=== PATIENT | male | born 1930 | race Caucasian/White ===

== ENCOUNTER 2016-11-17 09:03 | Inpatient (IN) | payer MEDICARE, BC ==
[~2016-11-17] VITALS: Ht 167.6 cm; Wt 71.6 kg
--- NOTE | ~2016-11-17 | ENPV ---
Carotid Duplex Study Demographics Patient Name ANA SIU Date of Study 11/17/2016 Patient Number [id number] Gender Male Date of 1930 Age 86 Visit Number [id number] Height 66 Accession Number [id number] Weight 147.49 Referring Magalis Buckley MD Physician A Physician Physician Michael Hope Installer Technician Physician DO Hostess Party Sales Representative Theodora Berg BS, RT Conclusions Summary No evidence of stenosis in the carotid arteries bilaterally. The right vertebral artery is present with antegrade flow. The left vertebral artery is present with antegrade flow. Calcific plaque at the bulb and proximal internal carotid arteries bilaterally. Tortuous right internal carotid artery. Procedure Type of Study: Cerebral:Carotid, Carotid Doppler Bilateral. Indications for Study:Pre-Op CABG. Appropriate Use Criteria:6 Allergies - No known allergies. Patient Status:Routine. Study Location:Inpatient Portable. Technical Quality:Adequate visualization. Risk Factors - The patient's risk factor(s) include: dyslipidemia and arterial hypertension. - The patient's last creatinine was 1 mg/dl. Velocities are measured in cm/s ; Diameters are measured in cm Carotid Right Measurements Carotid Left Measurements + +--------+--------+ + + + +--------+ --------+ + + !Location !PSV !EDV !Angle !%Stenosis ! !Location !PSV ! EDV !Angle !%Stenosis ! + +--------+--------+ + + + +--------+ --------+ + + !Prox CCA !123 !13 !60 ! ! !Prox CCA !127 ! 22 !60 ! ! + +--------+--------+ + + + +--------+ --------+ + + !Dist CCA !112 !15 !60 ! ! !Dist CCA !100 ! 15 !60 ! ! + +--------+--------+ + + + +--------+ --------+ + + !Prox ICA !76 !22 !60 ! ! !Prox ICA !78 ! 19 !60 ! ! + +--------+--------+ + + + +--------+ --------+ + + !Dist ICA !83 !20 !50 ! ! !Dist ICA !51 ! 15 !24 ! ! + +--------+--------+ + + + +--------+ --------+ + + !Prox ECA !120 ! !60 ! ! !Prox ECA !109 ! !60 ! ! + +--------+--------+ + + + +--------+ --------+ + + !Vertebral !47 ! !60 ! ! !Vertebral !42 ! !60 ! ! + +--------+--------+ + + + +--------+ --------+ + + !Subclavian !141 ! !60 ! ! !Subclavian !138 ! !60 ! ! + +--------+--------+ + + + +--------+ --------+ + + - There is antegrade vertebral flow noted on the right side. - There is antegrade verte bral flow noted on the left side. - Add'l Measurements:ICAPSV/CCAPSV 0.68.ICAEDV/CCAEDV 1.69. - Add'l Measurements:ICAPS V/CCAPSV 0.61.ICAEDV/CCAEDV 0.85. Signature dtt: JESSICA MAY dtd: 11/17/16 1426 Physician Self Edit
--- NOTE | ~2016-11-17 | ENPV ---
Vascular Lower Extremity Vein Mapping Procedure Demographics Patient Name ANA ISU Date of Study 11/17/2016 Patient Number [id number] Gender Male Date of 1930 Age 86 Visit Number [id number] Height 66 Accession Number [id number] Weight 147.49 Referring Magalis Buckley MD Physician A Physician Physician Michael Hope Bench Precision Assembler Physician DO Lighting Fixtures Decorator Theodora Berg BS, RT Conclusions Summary Borderline adequate GSV bilaterally. Procedure Type of Study: Veins:Lower Extremity Vein Mapping, Vein Mapping NH. Indications for Study:Pre-Op CABG. Allergies - No known allergies. Patient Status:Routine. Study Location:Inpatient Portable. Technical Quality:Adequate visualization. Risk Factors - The patient's risk factor(s) include: dyslipidemia and arterial hypertension. - The patient's last creatinine was 1 mg/dl. Velocities are measured in cm/s ; Diameters are measured in cm + ++--------++--------+ !Superficial - Great Saphenous Vein !!Right !!Left ! + ++--------++--------+ !Location !!Diameter!!Diameter! + ++--------++--------+ !Sapheno Femoral Junction !!0.4 !!0.34 ! + ++--------++--------+ !GSV High Thigh !!0.35 !!0.28 ! + ++--------++--------+ !GSV Mid Thigh !!0.2 !!0.29 ! + ++--------++--------+ !GSV Low Thigh !!0.26 !!0.22 ! + ++--------++--------+ !GSV Knee !!0.2 !!0.21 ! + ++--------++--------+ !GSV High Calf !!0.15 !!0.23 ! + ++--------++--------+ !GSV Mid Calf !!0.22 !!0.21 ! + ++--------++--------+ !GSV Low Calf !!0.24 !!0.2 ! + ++--------++--------+ !GSV Ankle !!0.23 !!0.25 ! + ++--------++--------+ Signature dtt: JESSICA MAY dtissa: 11/17/16 1443 Physician Self Margaret
--- NOTE | ~2016-11-17 | OR ---
PATIENT'S NAME: ANA SIU [facility] AGE: 86 Y [address] ROOM: [place] [address] LOCATION: GPCU ADMIT DATE: 11/18/2016 OR/Procedure Report DISCHARGE DATE: FAMILY PHYSICIAN: SERA CORTEZ MD ATTENDING PHYSICIAN: Jalen Blancas SURGEON: Bonita Nelson MD NAILING MACHINE OPERATOR AUTOMATIC: DATE OF PROCEDURE: 11/19/2016 INDICATION FOR PROCEDURE: Intraoperative hemodynamic monitoring and access. PROCEDURE: 1. Central venous catheter. 2. Arterial line. DESCRIPTION OF PROCEDURE: After a brief time-out was completed, verifying the correct patient, procedure, and site, the patient was placed in dependent position appropriate for central line placement. The patient's neck was prepped and draped in usual sterile fashion and 1 mL 1% lidocaine was used to anesthetize the surrounding skin. Using the Seldinger technique and under real-time ultrasound guidance, a 2 lumen introducer 9-Slovenian 10-cm sheath was introduced into the right internal jugular vein. The guidewire then was removed. Each lumen of the catheter was evacuated from air and then flushed with sterile saline. The catheter then was sutured in place and a sterile Tegaderm then was applied. Next, under arterial line placement, the patient's left wrist was prepped and draped in the usual sterile fashion. A 1 mL 1% lidocaine was used to anesthetize the surrounding skin. Using a 20-gauge Arrow catheter under the Seldinger technique, the guidewire was introduced into the patient's left radial artery and catheter then was introduced over the guidewire and the guidewire then was removed. Pulsatile waveform did ensue on the monitor and the catheter then was secured to place. A sterile Tegaderm was applied. Pulses at the distal insertion of the catheter were checked and found to be adequate. The patient tolerated the above procedures well. There were no procedural complications. BONITA NELSON MD FAY/modl /[id number] d: 11/24/16 2329 t: 12/15/16 0913, OPERATIVE SUMMARY
--- NOTE | ~2016-11-17 | CON ---
PATIENT'S NAME: ANA SIU [facility] AGE: 86 Y [address] ROOM: [place] [address] LOCATION: GPCU ADMIT DATE: 11/18/2016 Consultation DISCHARGE DATE: FAMILY PHYSICIAN: SERA CORTEZ MD ATTENDING PHYSICIAN: Jalen Blancas DATE OF CONSULTATION: 11/17/2016 REFERRING PHYSICIAN: Karlo Montenegro DO REQUESTING PHYSICIAN: Jalen Blancas MD REASON FOR CONSULTATION: Stable exertional angina/coronary artery disease. HISTORY OF PRESENT ILLNESS: The patient is an 86-year-old white male who is in relatively good health. As of late, he has been noticing exertional angina, especially with quick-paced walking. The chest discomfort resolves once he discontinues the activity. He has been evaluated by his primary care provider and has been seen by Dr. Blancas in the [facility]. He underwent a treadmill stress test with findings of nonischemic perfusion, but ischemic EKG changes. His ejection fraction was noted to be at 75%. Given these findings, Dr. Blancas recommended that the patient follow through with a left heart catheterization, which was done here today at [facility]. Findings for the catheterization revealed to the right coronary artery, an 85% occlusion. To the LAD, 85% occlusion. To the circumflex, an 80% and an 85% occlusion respectively, and a diagonal at 70%. Dr. Blancas discussed the findings with the patient and his . Surgical revascularization was recommended, and Dr. Montenegro was asked to see the patient in consultation for consideration of bypass surgery. PAST MEDICAL HISTORY: ILLNESSES: Hypertension and dyslipidemia. SURGERIES/PROCEDURES: Bilateral cataract surgeries and left surgical repair of a fractured femur. ALLERGIES: NO KNOWN DRUG ALLERGIES. SOCIAL HISTORY: PATIENT'S NAME: ANA SIU [facility] AGE: 86 Y [address] ROOM: [place] [address] LOCATION: GPCU ADMIT DATE: 11/18/2016 Consultation DISCHARGE DATE: FAMILY PHYSICIAN: SERA CORTEZ MD ATTENDING PHYSICIAN: Jalen Blancas The patient and his reside in [place], [place]. He is retired. He has grown children. He is a lifetime nonsmoker and does not consume alcohol. MEDICATIONS: 1. Cozaar 25 mg daily. 2. Lipitor 40 mg daily. 3. Coreg 3.125 mg b.i.d. 4. Aspirin 81 mg daily. 5. Lutein 20 mg daily. 6. Multivitamin. REVIEW OF SYSTEMS: GENERAL: The patient denies any change in weight or appetite. No fever chills or sweats. He has not noted any fatigue. HEENT: Age-related vision changes with cataract surgery. He does wear glasses. No hearing complaints. Does have some difficulty with swallowing pills and food at times. RESPIRATORY: No unusual cough, wheezing, or history of asthma. He has not been having any shortness of breath. No PND, KANG, or orthopnea. No diagnosed obstructive sleep apnea. CARDIOVASCULAR: Stable exertional chest discomfort which is present intermittently. No history of murmur. No intermittent claudication. No lower extremity edema. GASTROINTESTINAL: No persistent nausea, vomiting, constipation, or diarrhea. No GERD complaints. GENITOURINARY: Does have an enlarged prostate, but otherwise no urinary issues. MUSCULOSKELETAL: Overall, no complaints. He does not require ambulatory devices for assisting him in ambulation. NEUROLOGIC: No frequent or severe headaches. No history of seizures, memory loss, or syncope. ENDOCRINE: No diagnosed diabetes or thyroid conditions. INTEGUMENT: No known skin diseases. PHYSICAL EXAMINATION: VITAL SIGNS: Blood pressure 152/78, pulse is 61, respirations 16, temperature 97.4, and O2 saturation is 97% on room air. Height is 167.64 cm and weight is 66.9 kg. GENERAL: He is very pleasant. He is in no acute distress. His is here as well as his daughter for the consultation. HEENT: Normocephalic, with EOMIs intact. Conjunctivae clear. LUNGS: Clear to auscultation on the anterior. CARDIOVASCULAR: Regular rate and rhythm. ABDOMEN: Soft and nontender x4 quadrants with positive bowel sounds throughout. PATIENT'S NAME: ANA SIU [facility] AGE: 86 Y [address] ROOM: [place] [address] [facility] ADMIT DATE: 11/18/2016 Consultation DISCHARGE DATE: FAMILY PHYSICIAN: SERA CORTEZ MD ATTENDING PHYSICIAN: Jalen Blancas EXTREMITIES: No clubbing, cyanosis, or edema. No varicosities. NEUROLOGIC: Alert and oriented. Strength is symmetrical. SKIN: No suspicious skin lesions. LABORATORY AND TEST RESULTS: CBC with his white blood cell count of 6.2, hemoglobin 12.7, hematocrit 37.6, and platelets 166. INR 1.14. CMS shows a sodium of 140, potassium of 4.1, BUN at 21, creatinine at 1.0, and estimated GFR is greater than 60. His lipid profile shows a cholesterol of 113, triglycerides 77, HDL 47, and an LDL of 51. IMPRESSION: 1. Multivessel coronary artery disease. 2. Stable exertional angina. RECOMMENDATION AND PLAN: Dr. Montenegro has reviewed the catheterization films. He has discussed the findings with the patient and his family. Risks and benefits of surgical revascularization were discussed. Discussion of the risks included, but were not limited to bleeding requiring transfusion or return to the operative suite, myocardial infarction, cerebrovascular accident, renal and/or pulmonary failure. Also discussed were arrhythmias and infection as well as operative and postoperative mortality. Length of stay and recovery thereafter were discussed. The patient does consent to proceed with surgery. We will have him transferred to the progressive care floor where we will begin preoperative evaluation with plans for surgery on November 19, 2016. The patient and family's questions were asked and answered to their satisfaction. We would like to thank Dr. Blancas for allowing us to participate in the care of this very pleasant gentleman. ERICH MONTENEGRO APRN FOR KARLO MONTENEGRO, DO DLQ/modl /[id number] d: 11/18/16 1219 t: 12/01/16 0828, CONSULTATION REPORT
--- NOTE | ~2016-11-17 | OR ---
PATIENT'S NAME: ANA SIU [facility] AGE: 86 Y [address] ROOM: [place] [address] LOCATION: CU ADMIT DATE: 11/18/2016 OR/Procedure Report DISCHARGE DATE: FAMILY PHYSICIAN: BURAK MCINTYRE MD ATTENDING PHYSICIAN: Jalen Blancas SURGEON: Karlo Elkins DO TIGHTENING MACHINE OPERATOR: DATE OF PROCEDURE: 11/19/2016 PREOPERATIVE DIAGNOSIS: Multivessel coronary artery disease. POSTOPERATIVE DIAGNOSES: Multivessel coronary artery disease plus coagulopathy. PROCEDURES PERFORMED: Coronary artery bypass grafting x6 with reverse saphenous vein graft to the LAD, left internal mammary artery bypass to diagonal #2, reverse saphenous vein graft to diagonal #1, reverse saphenous vein graft to diagonal #3, reverse saphenous vein graft to obtuse marginal #4, and reverse saphenous vein graft to posterior descending artery. BRIEF HISTORY: Mr. Siu is an 86-year-old white male with the above noted diagnosis. DESCRIPTION OF SURGERY: He has been brought to the Operative Suite today, and sterilely prepped and draped in the usual fashion for surgical revascularization. A sternal incision was made, and the sternum was divided in midline. Concurrently to this, the saphenous vein was harvested endoscopically from the lower extremities. The mammary retractor was placed, and the left internal mammary artery was identified and then harvested utilizing surgical clips and electrocautery. Prior to its division, the patient was fully heparinized. The mammary was then divided and prepared for bypass. The mammary retractor was removed, and a sternal retractor was placed. Pericardium was opened and pericardial well was created. The patient did have significant hyperinflation of his lungs, which over the chronic term has displaced his heart inferiorly, making the mammary somewhat shortened in comparison to his LAD. His LAD, however, was significantly calcified, and his internal mammary will not reach to an adequate level. Therefore, we will use it for a diagonal artery branch. Continuing, the vein was then prepared for bypass. Cannulation sutures were placed in the ascending aorta and right atrium for bypass with cardioplegic cannulae. The patient was cannulated and connected to the bypass pump without difficulty. Adequate ACT was achieved. Cardiopulmonary bypass was initiated. Cross-clamp was applied. Antegrade and retrograde cardioplegia were given along with topical cold saline for cardiac arrest. The posterior descending artery was identified and opened, and an end- to-side vein graft was anastomosed to this in a 7-0 fashion and sized PATIENT'S NAME: ANA SIU [facility] AGE: 86 Y [address] ROOM: [id number] [place], [place] [address] LOCATION: [facility] ADMIT DATE: 11/18/2016 OR/Procedure Report DISCHARGE DATE: FAMILY PHYSICIAN: BURAK MCINTYRE MD ATTENDING PHYSICIAN: Jalen Blancas appropriately. Another 500 mL of vein graft and retrograde cardioplegia were given. This was done after each distal anastomosis. Similar venous distal anastomoses were then completed to each of the obtuse marginals. We then utilized the internal mammary artery to diagonal #2, and then saphenous vein grafts to the remaining diagonal and then to the LAD. Once all these were completed, the cross-clamp was removed and a partial occlusion clamp was placed. Warm blood was now initiated via the vein grafts, and the bulldog had been removed from the mammary. We performed three vein grafts to the ascending aorta, each of the obtuse marginals, and the posterior descending artery under partial occlusion clamping. This was done with 4-0 punch and 6-0 Prolene. With this completed, the partial occlusion clamp was removed. The grafts were de-aired, bulldog was removed, and distal flow was given. We then utilized 3.8 heartstring and a 6-0 Prolene to anastomose LAD vein graft to the ascending aorta, and then we utilized [id number] of the diagonal to an obtuse marginal to complete our proximal anastomosis. Once this was completed, the warm blood was discontinued and retrograde catheter was removed. Two atrial and one ventricular temporary pacemaking wires were placed. Ventilations were initiated, and we weaned from cardiopulmonary bypass without difficulty. The patient was coagulopathic throughout the course of the procedure and even prior to heparinization. Our labs were sent off. Venous cannula was removed, and remaining volume was returned from the pump to the patient. The ascending aortic cannula was then removed. ROSALIO had shown profound abnormalities of the platelets system, fibrinogen system, and our labs confirmed a low fibrinogen level of 82 and an elevated INR of 1.9 and platelet count of 149. Therefore, we have ordered 2 units of platelets, 20 units of cryoprecipitate, and 2 units of FFP. Three chest tubes were placed, one in the left pleural space, one in the posterior pericardial space, and one in the anterior mediastinal space. Sternocaval system was then utilized to close the sternum. COUNT RESULTS: All sponge, instrument, and needle counts were correct. WOUND CLOSURE: Copious amounts of antibiotic-infused saline were used to irrigate the sternum and mediastinum. The soft tissues were closed in a layered fashion. DO ERICKA FITZGERALD/mc /[id number] PATIENT'S NAME: ANA SIU [facility] AGE: 86 Y [address] ROOM: [place] [address] LOCATION: GICU ADMIT DATE: 11/18/2016 OR/Procedure Report DISCHARGE DATE: FAMILY PHYSICIAN: BURAK MCINTYRE MD ATTENDING PHYSICIAN: Jalen Blancas CC: Burak Mcintyre MD d: 11/19/161 t: 11/20/16 1526, OPERATIVE SUMMARY
--- NOTE | ~2016-11-17 | CON ---
PATIENT'S NAME: ANA SIU [facility] AGE: 86 Y [address] ROOM: [place] [address] LOCATION: GPCU ADMIT DATE: 11/18/2016 Consultation DISCHARGE DATE: FAMILY PHYSICIAN: SERA CORTEZ MD ATTENDING PHYSICIAN: Jalen Ramsey REFERRING PHYSICIAN: Karlo Montenegro, DO A CONSULT FOR DR. RAMSEY AND DR. MONTENEGRO.: HISTORY OF PRESENT ILLNESS: This pleasant, 86-year-old gentleman is referred for rehab evaluation. He is status post, and on 11/19/2016, multivessel coronary artery disease, CABG x6 vessels done on 11/19/2016 as I mentioned. Initially, he was having exertional angina, details on history and physical. PAST MEDICAL HISTORY: Past history of significance also: 1. Hypertension. 2. Dyslipidemia. 3. Bilateral cataract surgeries. 4. Left femur fracture, status post repair and pinning. 5. Hypothyroid. PHYSICAL EXAMINATION: GENERAL: He is alert at the present time, oriented x3. VITAL SIGNS: Blood pressure 121/64, temperature 97.9, pulse 77, respiration rate 18. He is 5 feet 6 inches and weighs 72.5. He is on sternal precautions and with heart hugger. HEAD: Normocephalic. Cranial nerves 2 through 12 are within normal limits. He is saturating at room air. Vitals remain stable, and he is able to comprehend and express without difficulty. MEDICATIONS: He is on the following medications: 1. Levothyroxine. 2. Colchicine. 3. Aspirin. 4. Multivitamin. 5. Lasix. 6. Pepcid. 7. Pacerone. 8. Docusate sodium. PATIENT'S NAME: ANA SIU [facility] AGE: 86 Y [address] ROOM: [place] [address] LOCATION: GPCU ADMIT DATE: 11/18/2016 Consultation DISCHARGE DATE: FAMILY PHYSICIAN: SERA CORTEZ MD ATTENDING PHYSICIAN: Jalen Ramsey 9. Lipitor. 10. Potassium chloride. 11. Coreg. 12. Lortab. 13. Tylenol. 14. Milk of magnesia. 15. Glucose. 16. Lovenox. 17. Albuterol. 18. Glucagon. 19. Dextrose. 20. Amiodarone. 21. Zofran. 22. Dulcolax. 23. Morphine sulfate. 24. Bactroban. ASSESSMENT AND PLAN: We will initiate, at the present time, PT, OT, and speech. Please see the orders. I feel this gentleman will benefit from intensive rehabilitation about 2 weeks, aiming to discharge at modified independence. I did explain all this to him and his and daughter. They verbalized understanding and agreement. Thank you for this referral. MD MINERVA ISIDRO/mc /[id number] d: 11/24/16 1520 t: 11/25/16 0809, CONSULTATION REPORT
--- NOTE | ~2016-11-17 | CATH ---
Cardiac Diagnostic Report Demographics Patient Name SHERRON Sanabria Gender Male Date of 1930 Age 86 year(s) Patient Number [id number] Date of Study 11/17/2016 Visit Number [id number] Room Number G6336 [place] [id number] Ht 167.64 cm Wt 66.9 kg Referring Miguelina Donohue Primary Physician Physician Performing Efstratiou Secondary Physician Physician Onelia Marquez MD Diagnostic Efstratiou Assisting Physician Physician Onelia Marquez MD Interventional Physician Workplace Rehabilitation Officer Physician Findings and Conclusions Diagnostic Findings and Conclusion Heavily calcified coronaries Severe diffuse 3 vessel CAD Diagnostic Recommendations CT Consult Procedure Description The patient was brought to the diagnostic cardiac catheterization-EP laboratory in the fasting, non-sedated state. Informed consent was obtained in the written and verbal form after the risks and benefits were explained. The patient had no further questions and agreed to proceed. The planned puncture-incision site(s) were shaved and prepped with ChloraPrep and draped in the usual sterile manner. Conscious sedation, supplemental oxygen, and pain control medications were delivered by a registered nurse under physician guidance. Surface ECG rhythm, blood pressure measurement, and pulse oximetry were monitored throughout the procedure. Arterial access. The access site was infiltrated with lidocaine. The vessel was entered with the Seldinger technique. A sheath was advanced into the vessel and used for catheter placement. Selective right coronary angiography. A catheter was advanced into the right coronary vessel ostium under fluoroscopic guidance. Contrast was injected by hand. Images were obtained in multiple projections. Selective left coronary angiography. A catheter was advanced into the left coronary vessel ostium under Fluoroscopic guidance. Contrast was injected by hand. Images were obtained in multiple projections. Arterial artery hemostasis was achieved. The patient was transferred to a regular nursing floor via cart accompanied by a nurse. The patient left the laboratory in stable condition. Diagnostic Cath Status: Elective Procedure Procedure Type Diagnostic procedure:Angiography:, Coronary Angios Indications: Exertional Chest Pain. The procedure was explained in detail to the patient. Risks, complications and alternative treatments were reviewed. Written consent was obtained. Medications Reviewed with Patient prior to Procedure. Angiographic Findings Dominance: Right Cardiac Arteries and Lesion Findings LMCA: Normal (0% Stenosis).Short, patent LAD: Lesion on Mid LAD: Mid subsection.90% stenosis . Lesion on Dist LAD: Mid subsection.95% stenosis . Lesion on 1st Diag: Mid subsection.70% stenosis . LCx: Lesion on Prox CX: Proximal subsection.50% stenosis . Lesion on 1st Ob Isabelle: Mid subsection.95% stenosis . RCA: Lesion on Mid RCA: Mid subsection.80% stenosis . Comments:Long lesion Coronary Tree Procedure Data Procedure Date Date: 11/17/2016Start: 11:52 AMEnd: 12:15 PM Entry Locations - Retrograde Percutaneous access was performed through the Right Radial artery (Primary location). A 6 Fr sheath was inserted. Hemostasis was successfully obtained using Mechanical Compression. Closure Comments: 13mL's in R Band. Procedure Medications Order and Administration + + +-------+-------+ !Time !Medication !Dosage !Route ! + + +-------+-------+ !11/17/2016 !Versed !1 mg !I.V. ! !11:50 AM ! ! ! ! + + +-------+-------+ !11/17/2016 !PAE Radial Cocktail: Heparin 5000 units, ! !I.A. ! !11:55 AM !Nitroglycerin 200mcg, Verapamil 3 mg ! ! ! ! !(ACC_3) ! ! ! + + +-------+-------+ Devices Used - A6 Fr. BS JR 4 Diag. Catheterwas used for:Right coronary angiography. - A6 Fr. BS JL 3.5 Diag. Catheterwas used for:Left coronary angiography. Contrast Material - Isovue 23379 ml Fluoroscopy Time: Diagnostic: 4:18 minutes. Total: 4:18 minutes. Fluoroscopy Dose: Diagnostic: 457 mGy. Total: 457 mGy. Estimated Blood Loss: 10 ml. Medical History Performed Procedures and Imaging Results - Standard exercise stress testwas performed. Results were: Negative. Allergies - No known allergies. Risk Factors The patient risk factors include:hypertension, family history of premature CAD, last creatinine: 1 mg/dl, creatinine clearance: 51.1 ml/min and dyslipidemia. Admission Data Admission Date: 11/18/2016 Admission Time: 12:11 PM Admit Source: Other Insurance Payors: Medicare. Admission Medications + +------+------+ + + + + !Medication !Dosage!Times !Last !Last !Administered !Comments ! ! ! !Per !Delivery !Delivery ! ! ! ! ! !Day !Date !Time ! ! ! + +------+------+ + + + + !Beta ! ! ! ! !Yes ! ! !Filemon ! ! ! ! ! ! ! !(any) ! ! ! ! ! ! ! + +------+------+ + + + + !Aspirin ! ! ! ! !Yes ! ! !(any) ! ! ! ! ! ! ! + +------+------+ + + + + !Statin ! ! ! ! !Yes ! ! !(any) ! ! ! ! ! ! ! + +------+------+ + + + + !ARB (any) ! ! ! ! !Yes ! ! + +------+------+ + + + + Clinical Evaluation Leading to Procedure - The patient's CAD presentation was assessed as: Unstable angina. - The patient's anginal syndrome during the past two weeks was assessed as: Class II according to the [place] Cardiovascular Society Classification System (CCS). Anti-anginal medications were prescribed during the past two weeks. The medication is: Beta Blockers. VA . Ejection Fraction - Method: Radionucleotide. EF%: 76. Snapshots Hemodynamics Condition: Rest O2 Consumption: Estimated: 199.71Heart Rate: 70 bpm Pressures (mmHg) +-----+ + !Site !Pressure ! +-----+ + !AO !113/63 (86) ! +-----+ + Shunts Oxygen Values O2 Capacity 172.72 O2 Consumption 199.71 Signatures dtt: Jalen Blancas dtd: 11/17/16 1152 Physician Self Edit
--- NOTE | ~2016-11-17 | DS ---
PATIENT'S NAME: ANA [facility] AGE: 86 Y [address] ROOM: G6324 [place], [place] [address] LOCATION: GPCU ADMIT DATE: 11/18/2016 Discharge Summary DISCHARGE DATE: 11/27/2016 FAMILY PHYSICIAN: Burak Mcintyre MD ATTEND[facility]IC[facility]SE: The patient is an 86-year-old, white male, who had been experiencing stable exertional angina. He was seen by Dr. Blancas. Interestingly, he had a normal stress test. However, the stress test had to be concluded early as the patient became symptomatic. Due to this, Dr. Blancas recommended undergoing cardiac catheterization, which revealed multivessel coronary artery disease. The patient was referred to Dr. Elkins for consultation regarding multivessel coronary artery disease and remediation. The patient consented and on 11/19/2016, the patient underwent coronary artery bypass grafting x6 with a reverse saphenous vein graft to the LAD, left internal mammary artery bypass to the diagonal #2, reverse saphenous vein graft to the diagonal #1, reverse saphenous vein graft to the diagonal #3, reverse saphenous vein graft to the obtuse marginal #4, and a reverse saphenous vein graft to the posterior descending artery. The patient tolerated the surgery without complication. He was transferred to the ICU. He extubated without difficulty following the procedure. It should be noted that the patient was a difficult intubation. He also, prior to surgery, had indicated as was quickly identified, the patient was noted to have swallowing issues postextubation and therefore he was made n.p.o. until he could be evaluated by Speech Therapy. He underwent a modified barium swallow after previous other evaluations were conducted. He did fail this study. A Dobbhoff was initiated. The patient did receive a unit of packed cells postoperatively. He transferred to the progressive care floor on postoperative day 1. His chest tubes, pacemaking wires, and Mcconnell catheter were discontinued in the routine postoperative timeframe. He had no runs with atrial fibrillation. He had no healing complications. He worked with cardiac rehab without complication as well as PT/OT. We did ask Dr. Buenrostro to see the patient as given the patient's advanced age, he was deemed appropriate to receive additional therapy for deconditioning secondary to the surgical procedure. The patient's swallowing issue was obviously the patient's biggest difficulty following surgical intervention. Dr. Buenrostro did accept the patient when appropriate and on 11/27/2016, the patient was transferred to Inpatient Rehab. FINAL DIAGNOSES: Include deconditioning secondary to surgical procedure, multivessel coronary artery disease, hypertension, dyslipidemia, and new onset of hypothyroidism. TRANSFER SUMMARY: Include Dr. Elkins and Dr. Blancas to follow along with inpatient therapy. The patient is to continue with tube feeding powder of PATIENT'S NAME: ANA [facility] AGE: 86 Y [address] ROOM: [place] [address] LOCATION: GPCU ADMIT DATE: 11/18/2016 Discharge Summary DISCHARGE DATE: 11/27/2016 FAMILY PHYSICIAN: Burak Mcintyre MD ATTENDING PHYSICIAN: Jalen Blancas Jevity to run at 50 mL an hour with 250 mL water flushes every 4 hours. He is to continue to work with PT, OT, and Speech Therapy in hopes to discontinue the Dobhoff when appropriate. He is to have Accu-Cheks q.6 hours. The patient has no dressings. He does not have any catheters. TRANSFER MEDICATIONS: Include: 1. Amiodarone 200 mg twice a day. 2. Aspirin 81 mg daily. 3. Lipitor 40 mg at h.s. 4. Carvedilol 3.125 mg b.i.d. 5. Colchicine 0.6 mg daily. 6. Colace 100 mg twice a day. 7. Lovenox 40 mg subcu daily. 8. Pepcid 20 mg b.i.d. 9. Lasix 40 mg daily. 10. Insulin per mild sliding scale. 11. Levothyroxine 50 mcg daily. 12. Cozaar 25 mg daily. 13. Multivitamin daily. 14. Potassium chloride 40 mEq daily. 15. Albuterol 2 puffs per inhalation q.i.d. 16. Tylenol 325 mg q.4 hours p.r.n. mild pain. 17. Lortab 300/10 mg q.4 hours p.r.n. 18. Dulcolax suppository 10 mg per rectum p.r.n. 19. Chloraseptic spray p.r.n. 20. Milk of mag 30 mL p.r.n. constipation. 21. Zofran 4 mg q.6 hours p.r.n. DISPOSITION: The patient was transferred to the Inpatient Rehab Unit in stable condition. ERICH MONTENEGRO APRN FOR DO JOSE MARIA FITZGERALD/zaynabl /[id number] d: 12/16/16623 t: 12/17/16922, DISCHARGE SUMMARY
[~2016-11-17 09:03] MED LIST: ASPIRIN LO-DOSE81 MG PO; COREG 3.1253.125 MG PO; COZAAR25 MG PO; LIPITOR40 MG PO; LUTEIN20 M1 PO; MULTI VITAMIN1 EACH PO
[2016-11-17 10:15] LABS: BASOPHIL # 0.1 K/uL (0.0-0.2); BASOPHIL % 1.1 %; EOSINOPHIL # 0.3 K/uL (0.0-0.5); EOSINOPHIL % 4.9 %; HEMATOCRIT 37.6 % (33.0-50.0); HEMOGLOBIN 12.7 g/dL (11.0-16.0); IMMATURE GRANULOCYTE % 0.2 %; LYMPHOCYTE # 1.7 K/uL (0.8-4.0); LYMPHOCYTE % 28.1 %; MCH 30.8 pg (27.0-34.0); MCHC 33.8 gm/dL (32.0-36.5); MONOCYTE # 0.6 K/uL (0.0-1.0); MONOCYTE % 9.1 %; MPV 10.9 fl (9.4-12.4); NEUTROPHIL # (ANC) 3.5 K/uL (1.4-9.0); NEUTROPHIL % 56.6 %; NRBC % 0 /100WBC (0-0.00); PLATELET COUNT 166 K/uL (150-450); RBC 4.13 M/uL (3.50-5.50); RDW-CV 14.7 % (11.9-14.6); WBC 6.2 K/uL (4.0-11.0)
[2016-11-17 10:23] LABS: INR - (THERAPEUTIC) 1.14 (0.92-1.07); PTT 28 SECONDS (25-32)
[2016-11-17 10:38] LABS: ALBUMIN 3.4 gm/dL (3.5-5.0); ALK PHOS 76 IU/L (33-138); ALT 24 IU/L (12-78); ANION GAP 10.1 (10.0-19.0); AST 22 IU/L (10-40); BLOOD UREA NITROGEN 21 mg/dL (6-24); CALCIUM 8.3 mg/dL (8.5-10.5); CHLORIDE 106 mMol/L (96-110); CO2 28 mMol/L (22-32); ESTIMATED GFR (MDRD EQUATION) > 60; POTASSIUM 4.1 mMol/L (3.7-5.1); SODIUM 140 mMol/L (135-145); TOTAL BILIRUBIN 0.5 mg/dL (0.0-1.5); TOTAL PROTEIN 7.3 g/dL (6.0-8.4)
[2016-11-17 22:28] LABS: BILIRUBIN URINE NEGATIVE (NEGATIVE); BLOOD URINE NEGATIVE /UL (NEGATIVE); COLOR URINE YELLOW (YELLOW); GLUCOSE URINE NEGATIVE (NEGATIVE); KETONE URINE NEGATIVE (NEGATIVE); LEUKOCYTES URINE NEGATIVE /UL (NEGATIVE); NITRITE URINE NEGATIVE (NEGATIVE); PROTEIN URINE NEGATIVE (NEGATIVE); SPEC GRAVITY URINE 1.005 (1.003-1.035); TURBIDITY URINE CLEAR (CLEAR); UROBILINOGEN URINE NORMAL (NORMAL)
[2016-11-18 07:40] LABS: ALBUMIN 3.1 gm/dL (3.5-5.0); ANION GAP 10.8 (10.0-19.0); BLOOD UREA NITROGEN 18 mg/dL (6-24); CALCIUM 8.2 mg/dL (8.5-10.5); CHLORIDE 108 mMol/L (96-110); CO2 26 mMol/L (22-32); CREATININE 0.9 mg/dL (0.6-1.3); ESTIMATED GFR (MDRD EQUATION) > 60; PHOSPHORUS 2.7 mg/dL (2.5-4.9); POTASSIUM 3.8 mMol/L (3.7-5.1); SODIUM 141 mMol/L (135-145)
[2016-11-19 02:35] LABS: ANION GAP 9.8 (10.0-19.0); BLOOD UREA NITROGEN 15 mg/dL (6-24); CALCIUM 8.4 mg/dL (8.5-10.5); CHLORIDE 107 mMol/L (96-110); CO2 28 mMol/L (22-32); ESTIMATED GFR (MDRD EQUATION) > 60; PHOSPHORUS 3.2 mg/dL (2.5-4.9); POTASSIUM 3.8 mMol/L (3.7-5.1); SODIUM 141 mMol/L (135-145)
[2016-11-19 12:32] LABS: MCV 88.5 fl (83.0-98.0); MPV 10.3 fl (9.4-12.4); RDW-CV 15.3 % (11.9-14.6); WBC 7.4 K/uL (4.0-11.0)
[2016-11-19 12:35] LABS: HEMATOCRIT 19.3 % (33.0-50.0); HEMOGLOBIN 6.5 g/dL (11.0-16.0); MCH 29.8 pg (27.0-34.0); MCHC 33.7 gm/dL (32.0-36.5); PLATELET COUNT 49 K/uL (150-450); RBC 2.18 M/uL (3.50-5.50)
[2016-11-19 12:50] LABS: INR - (THERAPEUTIC) 1.93 (0.92-1.07); PROTIME 20.4 SECONDS (9.8-11.4); PTT 76 SECONDS (25-32)
[2016-11-19 13:28] LABS: PCO2 39 mmHg (35-45); PO2 368 mmHg (80-90)
[2016-11-19 13:29] LABS: POTASSIUM 3.6 mEq/L (3.7-5.1); SODIUM 140 mEq/L (135-145)
[2016-11-19 13:29] LABS: PCO2 45 mmHg (35-45)
[2016-11-19 13:30] LABS: BICARBONATE 28.7 mmol/L (18.0-23.0); PO2 353 mmHg (80-90)
[2016-11-19 13:31] LABS: POTASSIUM 4.6 mEq/L (3.7-5.1); SODIUM 137 mEq/L (135-145)
[2016-11-19 13:32] LABS: BICARBONATE 27.3 mmol/L (18.0-23.0)
[2016-11-19 13:32] LABS: BICARBONATE 26.5 mmol/L (18.0-23.0); PCO2 40 mmHg (35-45); PO2 264 mmHg (80-90)
[2016-11-19 13:33] LABS: POTASSIUM 4.9 mEq/L (3.7-5.1); SODIUM 139 mEq/L (135-145)
[2016-11-19 13:34] LABS: BICARBONATE 26.2 mmol/L (18.0-23.0); PCO2 48 mmHg (35-45); PO2 233 mmHg (80-90)
[2016-11-19 13:35] LABS: SODIUM 140 mEq/L (135-145)
[2016-11-19 13:35] LABS: PCO2 43 mmHg (35-45)
[2016-11-19 13:36] LABS: BICARBONATE 27.3 mmol/L (18.0-23.0); PO2 361 mmHg (80-90); POTASSIUM 3.3 mEq/L (3.7-5.1); SODIUM 141 mEq/L (135-145)
[2016-11-19 13:37] LABS: BICARBONATE 25.7 mmol/L (18.0-23.0); PCO2 43 mmHg (35-45); PO2 407 mmHg (80-90)
[2016-11-19 13:38] LABS: POTASSIUM 3.7 mEq/L (3.7-5.1); SODIUM 140 mEq/L (135-145)
[2016-11-19 13:47] LABS: ALPHA ANGLE 47 degrees; ALPHA ANGLE 49 degrees (70-81); CLOT FORMATION TIME 267 seconds; CLOTTING TIME 121 seconds (43-82); CLOTTING TIME 193 seconds; MAXIMUM CLOT FIRMNESS 36 mm; MAXIMUM CLOT FIRMNESS 39 mm (51-72); MAXIMUM LYSIS 0 %
[2016-11-19 14:00] LABS: PCO2 44 mmHg (35-45)
[2016-11-19 14:01] LABS: BICARBONATE 26.1 mmol/L (18.0-23.0); PO2 179 mmHg (80-90)
[2016-11-19 14:14] LABS: ANION GAP 10.6 (10.0-19.0); BLOOD UREA NITROGEN 14 mg/dL (6-24); CHLORIDE 111 mMol/L (96-110); CO2 26 mMol/L (22-32); CREATININE 0.8 mg/dL (0.6-1.3); ESTIMATED GFR (MDRD EQUATION) > 60; POTASSIUM 3.6 mMol/L (3.7-5.1); SODIUM 144 mMol/L (135-145)
[2016-11-19 17:57] LABS: HEMOGLOBIN 8.4 g/dL (11.0-16.0)
[2016-11-19 17:58] LABS: HEMATOCRIT 24.7 % (33.0-50.0)
[2016-11-20 03:39] LABS: BICARBONATE 29.2 mmol/L (18.0-23.0); PCO2 44 mmHg (35-45)
[2016-11-20 03:44] LABS: PO2 72 mmHg (80-90)
[2016-11-20 03:56] LABS: ANION GAP 11.4 (10.0-19.0); CALCIUM 8.1 mg/dL (8.5-10.5); CREATININE 1.2 mg/dL (0.6-1.3); POTASSIUM 4.4 mMol/L (3.7-5.1)
[2016-11-20 03:59] LABS: HEMATOCRIT 25.5 % (33.0-50.0); HEMOGLOBIN 8.7 g/dL (11.0-16.0); MCHC 34.1 gm/dL (32.0-36.5); MCV 86.7 fl (83.0-98.0); MPV 10.7 fl (9.4-12.4); RDW-CV 15.9 % (11.9-14.6); WBC 6.6 K/uL (4.0-11.0)
[2016-11-20 04:00] LABS: MCH 29.6 pg (27.0-34.0); PLATELET COUNT 158 K/uL (150-450); RBC 2.94 M/uL (3.50-5.50)
[2016-11-20 05:30] LABS: LYMPHOCYTE # 1.4 K/uL (0.8-4.0); LYMPHOCYTE % 21 %; MONOCYTE # 0.8 K/uL (0.0-1.0); SEGMENTED NEUTROPHIL # 1.7 K/uL (1.4-9.0); SEGMENTED NEUTROPHIL % 26 %
[2016-11-20 05:31] LABS: ABSOLUTE NEUTROPHIL CT (ANC) 4.4 K/uL (1.4-9.0); BANDED NEUTROPHIL # 2.6 K/uL (0.0-0.1); BANDED NEUTROPHILS % 40 %
[2016-11-21 08:41] LABS: HEMATOCRIT 27.3 % (33.0-50.0); MCH 29.9 pg (27.0-34.0); MCV 90.7 fl (83.0-98.0); MPV 10.9 fl (9.4-12.4); PLATELET COUNT 139 K/uL (150-450); RBC 3.01 M/uL (3.50-5.50); RDW-CV 16.1 % (11.9-14.6); WBC 11.8 K/uL (4.0-11.0)
[2016-11-21 08:58] LABS: ANION GAP 13.9 (10.0-19.0); CALCIUM 8.4 mg/dL (8.5-10.5); CREATININE 1.8 mg/dL (0.6-1.3); POTASSIUM 3.9 mMol/L (3.7-5.1)
[2016-11-21 09:13] LABS: ABSOLUTE NEUTROPHIL CT (ANC) 8.9 K/uL (1.4-9.0); BANDED NEUTROPHILS % 17 %; LYMPHOCYTE # 1.8 K/uL (0.8-4.0); LYMPHOCYTE % 13 %; MONOCYTE # 0.9 K/uL (0.0-1.0); SEGMENTED NEUTROPHIL # 6.8 K/uL (1.4-9.0); SEGMENTED NEUTROPHIL % 58 %
[2016-11-22 11:39] LABS: ALBUMIN 3.1 gm/dL (3.5-5.0); CALCIUM 8.2 mg/dL (8.5-10.5); CREATININE 1.3 mg/dL (0.6-1.3); POTASSIUM 3.8 mMol/L (3.7-5.1)
[2016-11-22 11:41] LABS: ANION GAP 8.8 (10.0-19.0); PHOSPHORUS 1.3 mg/dL (2.5-4.9)
[2016-11-23 04:29] LABS: BASOPHIL % 0.2 %; EOSINOPHIL # 0.3 K/uL (0.0-0.5); EOSINOPHIL % 2.5 %; HEMATOCRIT 24.2 % (33.0-50.0); IMMATURE GRANULOCYTE % 0.3 %; LYMPHOCYTE % 9.2 %; MCHC 32.6 gm/dL (32.0-36.5); MONOCYTE % 9.2 %; MPV 10.8 fl (9.4-12.4); NEUTROPHIL # (ANC) 8.7 K/uL (1.4-9.0); NEUTROPHIL % 78.6 %; NRBC % 0 /100WBC (0-0.00); PLATELET COUNT 130 K/uL (150-450); RBC 2.63 M/uL (3.50-5.50); RDW-CV 15.6 % (11.9-14.6); WBC 11.1 K/uL (4.0-11.0)
[2016-11-23 04:30] LABS: HEMOGLOBIN 7.9 g/dL (11.0-16.0)
[2016-11-23 04:51] LABS: ALBUMIN 2.8 gm/dL (3.5-5.0); CREATININE 1.2 mg/dL (0.6-1.3); POTASSIUM 3.5 mMol/L (3.7-5.1)
[2016-11-23 04:52] LABS: ANION GAP 7.5 (10.0-19.0)
[2016-11-24 04:44] LABS: BASOPHIL # 0.1 K/uL (0.0-0.2); BASOPHIL % 0.6 %; EOSINOPHIL # 0.7 K/uL (0.0-0.5); HEMATOCRIT 25.8 % (33.0-50.0); HEMOGLOBIN 8.3 g/dL (11.0-16.0); IMMATURE GRANULOCYTE % 0.4 %; LYMPHOCYTE # 1.3 K/uL (0.8-4.0); LYMPHOCYTE % 15.8 %; MCH 30.1 pg (27.0-34.0); MCHC 32.2 gm/dL (32.0-36.5); MCV 93.5 fl (83.0-98.0); MONOCYTE # 1.1 K/uL (0.0-1.0); MONOCYTE % 13.9 %; MPV 11.5 fl (9.4-12.4); NEUTROPHIL % 61.3 %; NRBC % 0 /100WBC (0-0.00); PLATELET COUNT 146 K/uL (150-450); RBC 2.76 M/uL (3.50-5.50); RDW-CV 15.9 % (11.9-14.6); WBC 8.1 K/uL (4.0-11.0)
[2016-11-24 05:00] LABS: ALBUMIN 2.8 gm/dL (3.5-5.0); ANION GAP 9.8 (10.0-19.0); BLOOD UREA NITROGEN 49 mg/dL (6-24); CALCIUM 8.4 mg/dL (8.5-10.5); CHLORIDE 114 mMol/L (96-110); CO2 28 mMol/L (22-32); CREATININE 1.1 mg/dL (0.6-1.3); ESTIMATED GFR (MDRD EQUATION) > 60; MAGNESIUM 2.4 mg/dL (1.8-2.6); PHOSPHORUS 2.1 mg/dL (2.5-4.9); POTASSIUM 3.8 mMol/L (3.7-5.1); SODIUM 148 mMol/L (135-145)
[2016-11-25 05:06] LABS: ALBUMIN 2.6 gm/dL (3.5-5.0); ANION GAP 10.1 (10.0-19.0); BLOOD UREA NITROGEN 46 mg/dL (6-24); CALCIUM 8.3 mg/dL (8.5-10.5); CHLORIDE 114 mMol/L (96-110); CO2 27 mMol/L (22-32); CREATININE 1.1 mg/dL (0.6-1.3); ESTIMATED GFR (MDRD EQUATION) > 60; PHOSPHORUS 3.5 mg/dL (2.5-4.9); POTASSIUM 4.1 mMol/L (3.7-5.1)
[2016-11-25 05:07] LABS: SODIUM 147 mMol/L (135-145)
[2016-11-26 04:06] LABS: ANION GAP 9.3 (10.0-19.0); CREATININE 1.2 mg/dL (0.6-1.3); POTASSIUM 4.3 mMol/L (3.7-5.1)
== END 2016-11-27 09:55 | DRG 234 ==
LOC: GPCU 09:03 → GCAT 09:03 → GPOC 10:00 → GPCU 13:01 → GCAT 11-18 09:35 → GPCU 11-18 12:11 → GICU 11-18 12:11 → GPCU 11-20 11:24
PROVIDERS: Internal Medicine Interventional Cardiology; Nurse Practitioner Women's Health; Thoracic Surgery (Cardiothoracic Vascular Surgery); ADMIT Internal Medicine Cardiovascular Disease
DX: I25.110 Atherosclerotic heart disease of native coronary artery with unstable angina pectoris (principal); D68.9 Coagulation defect, unspecified; I10 Essential (primary) hypertension; E78.5 Hyperlipidemia, unspecified; T88.4XXA Failed or difficult intubation, initial encounter; R13.10 Dysphagia, unspecified; E03.9 Hypothyroidism, unspecified; Z79.82 Long term (current) use of aspirin
CPT/HCPCS: C1769; C1894; J0282; J0690; J1644; J1650; J2001; J2250; J2270; J2405; J2440; J3010; J3475; J3480; J3490; J7030; J7040; J7050; J7060; J7121; P9012; P9016; P9017; P9035; P9045

== ENCOUNTER 2016-11-27 10:01 | Inpatient (IN) | payer MEDICARE, BC ==
[~2016-11-27] VITALS: Ht 186.7 cm; Wt 71.0 kg
--- NOTE | ~2016-11-27 | HP ---
PATIENT'S NAME: ANA [facility] AGE: 86 Y [address] ROOM: [place] [address] LOCATION: [facility] ADMIT DATE: 11/27/2016 History & Physical DISCHARGE DATE: FAMILY PHYSICIAN: SERA CORTEZ MD ATTENDING PHYSICIAN: Cedrick Salas DATE OF SERVICE: This 86-year-old gentleman is admitted to Rehab Unit at on 11/27/2016 for continuous medical treatment and intensive rehabilitation with marked weakness, generalized, and difficulty with swallowing. He is status post CABG x6 vessels as follows: 1. Coronary artery bypass grafting x6 vessels with reverse saphenous vein graft to the left anterior descending, left internal mammary artery bypass to the diagonal. 2. Reverse saphenous vein graft to diagonal #1, reverse saphenous vein graft to diagonal #3, reverse saphenous vein graft to obtuse marginal #4, and reverse saphenous vein graft to posterior descending artery done per Dr. Montenegro on 11/19/2016. I did see this gentleman on initial consult on 11/24/2016 and recommended Intensive Rehab for about 2 weeks aiming to discharge [facility] and today on 11/27/2016 upon reevaluation I recommended Intensive Rehab for about 2 weeks aiming to discharge from modified [place] and follow on outpatient basis. PAST MEDICAL HISTORY: Past history of significance as follows: 1. History of exertional angina with coronary artery disease as per initial admission notes. 2. Hypertension. 3. Dyslipidemia. 4. Status post bilateral cataract surgery. 5. Status post left femur fracture, status post as reported pinning. 6. Hypothyroid. 7. Dyslipidemia. At the present time, he is alert, oriented. Vitals are as follows: Blood pressure 144/68, temperature 98.5, pulse 79, respirations rate 16. He stands 5 feet, 6 inches, weighs 71.6 kg. ALLERGIES: NONE REPORTED TO ANY MEDICATION. HE IS AT THE PRESENT TIME WEIGHTBEARING TOLERATED WITH STERNAL PRECAUTIONS. PATIENT'S NAME: ANA [facility] AGE: 86 Y [address] ROOM: [place] [address] LOCATION: [facility] ADMIT DATE: 11/27/2016 History & Physical DISCHARGE DATE: FAMILY PHYSICIAN: SERA CORTEZ MD ATTENDING PHYSICIAN: Cedrick Salas HE HAS DIFFICULTY SWALLOWING AND IS WITH DOBBHOFF TUBE. HE IS ON THE FOLLOWING MEDICATIONS: 1. CORDARONE 200 MG FT TWICE DAILY. 2. ASPIRIN 81 MG FT DAILY. 3. LIPITOR 40 MG P.O. DAILY. 4. COREG 3.125 MG FT TWICE DAILY WITH MEALS. 5. COLCHICINE 0.6 MG GT DAILY. 6. DOCUSATE SODIUM 100 MG FT TWICE DAILY. 7. LOVENOX 40 MG SUBCU AT BEDTIME. 8. PEPCID TO 120 MG P.O. DAILY. 9. LASIX 40 MG P.O. EVERY MORNING. 10. NOVOLOG INSULIN MILD SCALE PER PROTOCOL AND ACCU-CHEKS Q.6 H. 11. LEVOTHROID 50 MCG FT Q.A.M. 12. COZAAR 25 MG P.O. DAILY. 13. MULTIVITAMIN CONCENTRATE 50 ML IV 5 ML EVERYDAY. 14. KCL 20 MEQ P.O. B.I.D. 15. PROVENTIL OR ALBUTEROL 6.7 G 2 PUFFS INHALATION 4 TIMES DAILY. 16. TYLENOL LIQUID 650 Q.6 H. DO NOT EXCEED ACETAMINOPHEN 4 G Q.24 H. 17. LORTAB 7.5 MG IN 15 ML FT EVERY 4 HOURS NEEDED P.R.N. 18. DULCOLAX SUPPOSITORY 10 MG RECTALLY P.R.N. NEEDED. 19. CHLORASEPTIC SPRAY TO BACK NEEDED P.R.N. 20. DEXTROSE 50% 25 ML IV P.R.N. FOR HYPOGLYCEMIA. 21. GLUCAGON 1 MG SUBCU FOR HYPOGLYCEMIA P.R.N. 22. GLUCOSE 16 G PER GT FOR HYPOGLYCEMIA P.R.N. 23. MOM 30 ML P.R.N. PER FT. 24. MORPHINE SULFATE 2.5 MG IV Q.4 H. NEEDED. 25. ZOFRAN 4 MG IV Q.6 H. P.R.N. 26. ALBUTEROL 6.7 G INHALATION 2 PUFFS NEEDED P.R.N. THE PATIENT WILL BE PUT ON INTENSIVE PT, OT, AND SPEECH 3 HOURS PER DAY, 15 HOURS PER WEEK. IN THE A.M., WE WILL SEND FOR URINALYSIS, CBC, CMS, AND PREALBUMIN. WE WILL KEEP ON DR. MONTENEGRO AND HOSPITALIST TO FOLLOW NECESSARY. ALL THE ABOVE WAS EXPLAINED TO HIM IN DETAIL. HE VERBALIZED UNDERSTANDING AND AGREEMENT. CEDRICK SALAS MD WMS/zaynabl PATIENT'S NAME: ANA [facility] AGE: 86 Y [address] ROOM: [place] [address] LOCATION: [facility] ADMIT DATE: 11/27/2016 History & Physical DISCHARGE DATE: FAMILY PHYSICIAN: SERA CORTEZ MD ATTENDING PHYSICIAN: Cedrick Salas /[id number] D: 020 T: 808 HISTORY & PHYSICAL
--- NOTE | ~2016-11-27 | DS ---
PATIENT'S NAME: ANA [facility] AGE: 86 Y [address] ROOM: [address] [place] [address] LOCATION: [facility] ADMIT DATE: 11/27/2016 Discharge Summary DISCHARGE DATE: 12/11/2016 FAMILY PHYSICIAN: Burak Mcintyre MD ATTENDING PHYSICIAN: Cedrick Salas [facility] COURSE: This 86-year-old gentleman was admitted to rehab unit at [facility] on 11/27/2016. He is discharged to home on 12/11/2016. 1. He was with unstable gait. 2. Dependent in activities of daily self-care. 3. Markedly weak. Unable to ambulate but with assistant winemaker and with sternal precautions. He was status post CABG x6 vessels, status post coronary artery disease, with history of exertional angina. He has done well, staying with us so far. He is alert, oriented x3, feels good. He was fed for quite some time through with Dobbhoff tube; however, that has been discontinued, and he can tolerate swallowing without much difficulty. He remains on sternal precautions until cardiac surgeon will state otherwise. He should not drive and/or operate any mechanical device until otherwise advised by cardiac surgeon. He can ambulate up to 300 feet at independent level. He is, at the present time, on the following medications: 1. Theragran-M one tablet p.o. daily. 2. Micro-K 20 mcg on Thursday, Thursday, and Thursday. 3. Micro-K 20 mcg twice daily. 4. Proventil Ventolin 2 puffs inhalation 4 times a day. 5. Pepcid 20 mg p.o. daily. 6. Lasix 20 mg on Thursday, Thursday, and Thursday. 7. Lasix 40 mg every morning. 8. Levothroid 50 mcg p.o. q.a.m. 9. Cozaar 25 mg p.o. daily. 10. Cordarone 200 mg p.o. daily. 11. Aspirin 81 mg p.o. daily. 12. Lipitor 40 mg at bedtime. 13. Coreg 3.125 mg, give one p.o. twice daily with meals. 14. Colace 100 mg p.o. b.i.d. 15. Elmore 10/325 give every 8 hours as needed, give 24 of them. Any renewal through his family physician. PATIENT'S NAME: ANA [facility] AGE: 86 Y [address] ROOM: [address] [place] [id number] LOCATION: [facility] ADMIT DATE: 11/27/2016 Discharge Summary DISCHARGE DATE: 12/11/2016 FAMILY PHYSICIAN: Burak Mcintyre MD ATTENDING PHYSICIAN: Cedrick Salas FINAL DIAGNOSES: 1. Unstable gait. 2. Dependent in activities of daily self-care and improving. 3. Sternal precautions, and should continue so until he is otherwise advised by the cardiac surgeon. Should not drive and/or operate any mechanical device also until so advised by his cardiac surgeon. 4. He is status post CABG x6 vessels. 5. Coronary artery disease with history of exertional angina. 6. Hypertension. 7. Dyslipidemia. 8. Hypothyroid. 9. Had Dobbhoff tube, is discontinued at the present time, and can swallow. 10. Bilateral cataract surgeries per history. 11. Left femur fracture per history, status post ORIF. The patient is not to follow with me. He is to follow with his family physician as soon as possible. Follow with Dr. Elkins as he sees fit. All the above was explained to him in detail. He verbalized understanding and agreement. CEDRICK SALAS MD WMS/zaynabl /[id number] d: 12/11/16 1326 t: 12/13/16 0922, DISCHARGE SUMMARY
--- NOTE | ~2016-11-27 | CON ---
PATIENT'S NAME: ANA SIU [facility] AGE: 86 Y [address] ROOM: [place] [address] LOCATION: [facility] ADMIT DATE: 11/27/2016 Consultation DISCHARGE DATE: FAMILY PHYSICIAN: SERA CORTEZ MD ATTENDING PHYSICIAN: Cedrick Buenrostro REFERRING PHYSICIAN: Karlo Elkins DO REASON: This is a [facility] consultation. Dr. Buenrostro requested that the Hospitalist Service consult for medical management. HISTORY OF PRESENT ILLNESS: Mr. Siu is an 86-year-old male who is postop day 9 status post coronary artery bypass grafting of 6 vessels. He reports that he had been in his usual state of good health where he walks up to 5 miles a day, but had been having some chest pain. Initially, the chest pain was treated as acid reflux, but he did not have much response to PPI. After EGD showed esophageal narrowing with some spasm, the patient was referred to a general maintenance mechanic. He had severe dysphagia, much worse than anything that he retrospectively perceived prior to surgery, and is getting his nutrition through a Dobbhoff tube now. He was transferred to [facility] from the inpatient unit in [facility] on 11/27. Today, he has complained of bilateral rib pain, was not too bad. Otherwise, says he is participating in rehab without difficulty. PAST MEDICAL HISTORY: 1. Coronary artery disease with angina. 2. Hypertension. 3. Dyslipidemia. 4. Hypothyroidism. PAST SURGICAL HISTORY: 1. Bilateral cataract surgeries. 2. Left femur fracture, status post ORIF. ALLERGIES: NO KNOWN DRUG ALLERGIES. MEDICATIONS: 1. Amiodarone 200 mg p.o. b.i.d. 2. Aspirin 81 mg p.o. daily. 3. Lipitor 40 mg p.o. q.h.s. 4. Coreg 3.125 mg p.o. b.i.d. 5. Colchicine 0.6 mg daily. PATIENT'S NAME: ANA SIU [facility] AGE: 86 Y [address] ROOM: [place] [address] LOCATION: [facility] ADMIT DATE: 11/27/2016 Consultation DISCHARGE DATE: FAMILY PHYSICIAN: SERA CORTEZ MD ATTENDING PHYSICIAN: Cedrick Buenrostro 6. Docusate 100 mg p.o. b.i.d. 7. Enoxaparin 40 mg subcu daily. 8. Pepcid 20 mg p.o. daily. 9. Lasix 40 mg p.o. daily. 10. Insulin sliding scale. 11. Levothyroxine 50 mcg p.o. daily on empty stomach. 12. Losartan 25 mg p.o. daily. 13. Multiple vitamin 5 mL p.o. daily. 14. Potassium chloride 20 mEq b.i.d. 15. Albuterol inhaler 4 times a day. 16. Tylenol 650 mg every 4 hours as needed for pain or fever. 17. Lortab elixir 7.5 mg every 4 hours as needed for pain. 18. Bisacodyl 10 [place] as needed for constipation. 19. Chloraseptic [place] to the back of throat p.r.n. discomfort. 20. Milk of magnesia 30 mL p.o. every day p.r.n. constipation. 21. Morphine sulfate IV 2 to 4 mg once an hour as needed for breakthrough pain. 22. Zofran 4 mg IV as needed for nausea and vomiting. SOCIAL HISTORY: The patient is . He lives with his in [place], [place]. FAMILY HISTORY: His mother at age 44 of polycystic kidney disease. His father at 80 of a lung tumor. His brother had coronary artery disease and also polycystic kidney disease, and he is . REVIEW OF SYSTEMS: GENERAL: Negative for fevers, chills, or sweats. Today, he complains of the bilateral rib pain. He denies headache. PULMONARY: Negative. GASTROINTESTINAL: Negative. HEMATOLOGIC: Negative. The remainder of the 12-point review of systems has been reviewed with the patient and is negative. PHYSICAL EXAMINATION: VITAL SIGNS: Temperature 98.4, pulse 69, respirations 16, and blood pressure 136/67. GENERAL: This is a well-developed, well-nourished, but thin, elderly, male who appears younger than his stated age. HEENT: Normocephalic, atraumatic. His pupils are equal, round, and reactive to light. Sclerae are anicteric. Palpebral conjunctivae are slightly pale without exudate. Oropharynx is clear. His natural dentition is in fair PATIENT'S NAME: ANA SIU [facility] AGE: 86 Y [address] ROOM: [id number] [place] [address] LOCATION: [facility] ADMIT DATE: 11/27/2016 Consultation DISCHARGE DATE: FAMILY PHYSICIAN: SERA CORTEZ MD ATTENDING PHYSICIAN: Cedrick Buenrostro. NECK: Supple without lymphadenopathy or thyromegaly. There is a Dobbhoff tube in place in the naris. LUNGS: Clear to auscultation bilaterally. CARDIOVASCULAR: Regular rate and rhythm without murmur, rub, or gallop. ABDOMEN: Soft, flat, nontender, and nondistended with normoactive bowel sounds. There is no mass. EXTREMITIES: Trace pretibial edema. He has thick socks on, and I cannot appreciate his pulses. He is out of bed, in a chair. NEUROLOGIC: He is alert, awake, oriented, and a good historian. His speech is actually normal. LABORATORY DATA: All these labs are from today. Accu-Chek at 11:30 this morning is 125. Prealbumin is 12, normal range 20 to 40. Complete metabolic panel shows sodium 142, potassium 3.8, chloride 108, CO2 of 28, glucose 102, calcium 8.0, and creatinine 1.2. Total protein 6.7. Albumin 2.8. Globulin 3.9. Total bilirubin 1.4. Alkaline phosphatase 89, AST 26, and ALT 21. EGFR is 58. CBC shows white blood cell count 9.4, hemoglobin 9.0, platelet count is 255, and a normal differential. Urinalysis yesterday showed clear yellow urine, pH 6, small protein at 15. Otherwise, negative for white cells, red cells, or bacteria. ASSESSMENT AND PLAN: 1. Coronary artery disease, postop day 9 following grafting of [address] Elkins. The patient is doing well in rehab. We will continue his plan as per Dr. Elkins and [facility] Cardiology with amiodarone, aspirin, statin, beta dania, and loop diuretic. 2. Hypothyroidism. Continue current thyroid replacement. TSH was 7 on November 22. It is down from 12 on November 18 and will need to be followed up in 6 weeks as an outpatient as this is a new medicine for him. 3. Mild hyperglycemia. His A1c is 6.1, in the risk for diabetes range. We will continue him with current plan, just monitor his glucoses closely and have him on a low sliding scale. 4. Hypertension, is well controlled. Continue current medication. He is currently on beta dania and angiotensin-receptor dania. 5. Moderate protein malnutrition as evidenced by his low prealbumin. He is on Jevity at 50 an hour. This should suffice for protein replacement. We will check a prealbumin in one week from the last level. 6. Dysphagia. Continue speech therapy, and continue to reassess his abilities to swallow without the Dobbhoff. We may need to consider PEG placement if it does not improve within a reasonable amount of time then. Also, with his history of narrow esophagus and some spasm, we make need to consider treatment with calcium channel dania though this would have to be discussed with the general maintenance mechanic if that would help his swallow. We PATIENT'S NAME: ANA SIU [facility] AGE: 86 Y [address] ROOM: [place] [address] LOCATION: [facility] ADMIT DATE: 11/27/2016 Consultation DISCHARGE DATE: FAMILY PHYSICIAN: SERA CORTEZ MD ATTENDING PHYSICIAN: Cedrick Buenrostro will monitor this closely. 7. Dyslipidemia. Continue statin. 8. Disposition. Continue rehab as outlined by Dr. Buenrostro. Thank you very much for allowing the hospitalist group to participate in the care of this very kind gentleman and family. LOGAN PATRICK MD LM/modl /[id number] d: 11/28/161907 t: 11/30/16 171, CONSULTATION REPORT
--- NOTE | ~2016-11-27 | CON ---
PATIENT'S NAME: ANA SIU [facility] AGE: 86 Y [address] ROOM: [address] [place] [address] LOCATION: [facility] ADMIT DATE: 11/27/2016 Consultation DISCHARGE DATE: 12/11/2016 FAMILY PHYSICIAN: Burak Mcintyre MD ATTENDING PHYSICIAN: Cedrick Salas DATE OF CONSULTATION: 12/10/2016 REFERRING PHYSICIAN: Karlo Elkins DO TEAM MEMBERS REPORTING: Dr. Salas; Samantha Kahn, social work program coordinator; Maryam Cross, RN; Azucena Galeas, PT; Mago Martinez, PT; Viridiana Shankar, OT; Payton Lopez, therapeutic rec; Virgie Petty, Speech Therapy; and Sister Echo Kaye, Pastoral Care. CURRENT STATUS: Ana is an 86-year-old man, admitted to our inpatient rehab unit following a coronary artery bypass graft. The patient is continent of bowel and bladder. His skin is healing. No pain issues. He is on a cardiac mechanical soft diet, which was changed after his modified barium swallow and the Dobhoff was pulled. The patient can transfer uqv-bs-whovrk independently, supine-to- sit standby; uah-mg-ngyfd, rapqy-qh-age, tbv-fj-soxpa, and epxgw-ey-ifg independent. He can walk 300 feet independently and then climb 12 stairs with mod I. He has met 12/06 long-term PT goals. The patient can complete upper body dressing at mod I, lower body dressing standby, grooming independent, bathing standby, toilet transfers mod I, shower transfers, standby; and toileting, mod I. Home management tasks are currently at [employer]. He has met 02/11 long-term OT goals. The patient did progress to a mechanical soft diet. He is fearful to try foods. He is to have oral motor exercises and continue Speech Therapy services upon discharge. The patient can complete car transfers at [employer]. has been here. DISCHARGE PLAN: The patient is receiving 3 hours of PT, OT, and speech Thursday through Thursday. The patient has daily rehab, nursing, and physiatry involvement as well therapeutic recreational service is 4 days per week. The patient has shown functional improvement and is progressing. Please see his plan of care for specific goals. Plan is for the patient to discharge on , December 11, 2016, with outpatient therapy services. The patient will have Speech Therapy outpatient as well as Cardiac Rehab. SAMANTHA KAHN FOR CEDRICK SALAS MD PATIENT'S NAME: ANA SIU [facility] AGE: 86 Y [address] ROOM: [place] [address] LOCATION: [facility] ADMIT DATE: 11/27/2016 Consultation DISCHARGE DATE: 12/11/2016 FAMILY PHYSICIAN: Burak Mcintyre MD ATTENDING PHYSICIAN: Cedrick Salas TD/modl /[id number] d: 12/12/16 2358 t: 12/29/16 1414, CONSULTATION REPORT
--- NOTE | ~2016-11-27 | CON ---
PATIENT'S NAME: ANA SIU [facility] AGE: 86 Y [address] ROOM: [address] [place] [address] LOCATION: [facility] ADMIT DATE: 11/27/2016 Consultation DISCHARGE DATE: 12/11/2016 FAMILY PHYSICIAN: Burak Mcintyre MD ATTENDING PHYSICIAN: Cedrick Salas DATE OF CONSULTATION: 12/03/2016 REFERRING PHYSICIAN: Karlo Elkins DO Team members reporting include Dr. Salas; Samantha Kahn, licensed clinical social worker; Mary Lopez, RN; Mago Martinez, PT; Lucia Galeas, PT; Viridiana Shankar, OT; Virgie Petty, Speech Therapy; Payton Lopez, therapeutic rec; and Sister Echo Soares, Pastoral care. CURRENT STATUS: Ana is an 86-year-old man, admitted to our inpatient rehab unit on November 27, 2016, following a coronary artery bypass x5. The patient has a Dobhoff due to swallowing difficulties. He also has a history of coronary artery disease, hypertension, dyslipidemia, and hypothyroidism. The patient is occasionally incontinent of bowel. He has a sternal incision. Takes Lortab for pain. Prealbumin is 12. Was started on Lasix. Tube feeding is increased to 60 mL/h. Jevity 1.5, the patient is tolerating. The patient can transfer sit to supine, supine to sit, contact guard assistance; sit to stand and stand to sit, standby assistance; and bed to chair and chair to bed, standby assistance. He can ambulate 300 feet with a standby assistance, and he can climb 12 stairs with 2 railings at standby assistance. His goals have been set for mod I for transfers, gait, and stairs. The patient can dress his upper body at moderate assistance; lower body, minimal assistance; grooming, standby; bathing, minimal assistance; toilet transfers, contact guard assistance; and toileting, contact guard assistance. He has met 0/13 long- term OT goals. Comprehension is at mod I to independence. Language expression mod I to independence. Memory and problem solving mod I to independence. He is dependent for swallowing. They are going to be repeating modified barium swallow on Thursday. The patient has been very open to pastoral care. DISCHARGE PLAN: The patient is receiving 3 hours of PT, OT, and speech Thursday through Thursday. The patient has daily rehab, nursing, and physiatry involvement as well therapeutic recreational services 4 days per week. The patient has shown functional improvement and is progressing. Please see his plan of care for specific goals. Plan is for the patient to discharge in approximately 7 to 10 days. PATIENT'S NAME: ANA SIU [facility] AGE: 86 Y [address] ROOM: [address] [address] LOCATION: [facility] ADMIT DATE: 11/27/2016 Consultation DISCHARGE DATE: 12/11/2016 FAMILY PHYSICIAN: Burak Mcintyre MD ATTENDING PHYSICIAN: Cedrick Salas SAMANTHA KAHN FOR CEDRICK SALAS MD TD/modl /[id number] d: 12/12/16 2344 t: 12/29/16 1411, CONSULTATION REPORT
[2016-11-27 15:27] LABS: BILIRUBIN URINE NEGATIVE (NEGATIVE); BLOOD URINE NEGATIVE /UL (NEGATIVE); COLOR URINE YELLOW (YELLOW); GLUCOSE URINE NEGATIVE (NEGATIVE); KETONE URINE NEGATIVE (NEGATIVE); LEUKOCYTES URINE NEGATIVE /UL (NEGATIVE); NITRITE URINE NEGATIVE (NEGATIVE); PROTEIN URINE 15 mg/dL (NEGATIVE); TURBIDITY URINE CLEAR (CLEAR); UROBILINOGEN URINE 4 mg/dL (NORMAL)
[2016-11-27 15:45] LABS: WBC URINE NEGATIVE #/HPF (NEGATIVE)
[2016-11-27 15:46] LABS: BACTERIA URINE NEGATIVE (NEGATIVE); EPITHELIAL URINE NEGATIVE #/HPF (NEGATIVE); RBC URINE NEGATIVE #/HPF (NEGATIVE)
--- NOTE | 2016-11-27 16:10 | NUR ---
Significant Event:PATIENT ADMITTED FROM PCU TO ROOM 3295 VIA WHEELCHAIR. PATIENT HAD A 6 VESSEL CABG ON THE October. HAS BEEN HAVING DIFFICULTY SWALLOWING SO HE HAS A DOBHOFF WITH TUBE FEEDINGS RUNNING AT 50ML/HR OF JEVITY. DOBHOFF IS SECURED IN LEFT NARE. ALSO HAS A KINGS DRAIN IN LEFT MID ABDOMEN DRAINING SEROSANGUINOUS FLUID. HAS MULTIPLE INCISIONS ON CHEST AND LOWER LEGS WITH LOTS OF BRUISING. IS ON ACCU CHECKS EVERY 6 HOURS AT 5,11,17,23. 11 AM ACCU CHECK WAS 121. HAS 2 SALINE LOCKS IN LEFT ARM AND HAND. VSS. HAS DENIED PAIN SO FAR THIS SHIFT BUT DOES HAVE LORTAB THAT CAN BE PLACED DOWN TUBE IF NEEDED. FAMILY AT BEDSIDE FOR AWHILE AND IS STAYING IN THE [facility] AND THEN STATED THEY WILL PROBABLY GO HOME AFTER THAT AND COME UP DAILY AFTER THAT. HE TRANSFERS WITH 1 ASSIST, GAIT BELT AND USES WALKER AT TIMES. OTHER TIMES IS HAND HELD FOR SHORT DISTANCES. DOES WELL. RESTING IN RECLINER THIS AFTERNOON. NO OTHER COMPLAINTS. Follow up:
--- NOTE | 2016-11-27 23:29 | NUR ---
Significant Event: Alert and oriented X3. Vital signs stable. Tachypneic with RR 24. Productive cough with thick barrientos sputum. Uses heart hugger well. Uses IS well. Edema and ecchymosis to bilateral legs. Incision to legs and groins. Sternal inscision approximated and intact. Joseph draine to left upper abdomen with serosang drainage. Dobhoff feedings to L) nare with jevity running at 50 ml/hr with 250 ml water flush q 4 hr. Q 4 hr residual checks, last was at 2100 wtih 0 ml. Q 6 hr accuchecks, last at 2330 was 132. Tranfers with 1 assist, heart hugger, gait belt and walker, tolerates well. Pt had a small BM tonight. SL IV to L) FA. Lortab given x1 at 2103 for pain rating 5/10. Follow up: Message left with Dr. Elkins by day shift RN with following questions: Can pt shower? Can we chage dressing to joseph root? Can we DC IV?
[2016-11-28 05:27] LABS: BASOPHIL % 0.3 %; EOSINOPHIL # 0.6 K/uL (0.0-0.5); EOSINOPHIL % 6.7 %; HEMATOCRIT 28.6 % (33.0-50.0); IMMATURE GRANULOCYTE # 0.1 K/uL (0.0-0.3); IMMATURE GRANULOCYTE % 0.7 %; LYMPHOCYTE # 1.4 K/uL (0.8-4.0); LYMPHOCYTE % 14.7 %; MCH 29.5 pg (27.0-34.0); MCHC 31.5 gm/dL (32.0-36.5); MCV 93.8 fl (83.0-98.0); MONOCYTE # 0.7 K/uL (0.0-1.0); MONOCYTE % 6.9 %; MPV 11.4 fl (9.4-12.4); NEUTROPHIL # (ANC) 6.7 K/uL (1.4-9.0); NEUTROPHIL % 70.7 %; NRBC % 0 /100WBC (0-0.00); RBC 3.05 M/uL (3.50-5.50); RDW-CV 16.1 % (11.9-14.6); WBC 9.4 K/uL (4.0-11.0)
[2016-11-28 05:30] LABS: PLATELET COUNT 255 K/uL (150-450)
[2016-11-28 05:43] LABS: ALBUMIN 2.8 gm/dL (3.5-5.0); ANION GAP 9.8 (10.0-19.0); CREATININE 1.2 mg/dL (0.6-1.3); POTASSIUM 3.8 mMol/L (3.7-5.1); TOTAL BILIRUBIN 1.4 mg/dL (0.0-1.5); TOTAL PROTEIN 6.7 g/dL (6.0-8.4)
--- NOTE | 2016-11-28 12:01 | NUR ---
A-SCREENED D/T [facility] S/[facility]; FAILED MBS. EDEMA TO BLE. KINGS DRAIN IN PLACE. (+)BM; NO RESIDUALS FROM TF HT: 71.5 IN. WT: 72.1 KG (STANDING SCALE). BMI: 20.7 LABS: NA 142, K+ 3.8, GLU 102, BUN 41, AGRICULTURAL PURCHASING AGENT 1.2, ALB 2.8, PREALB 12.0. PREALB DOWN FROM 17.0 MEDS: CEROVITE, LASIX, PEPCID, DOCU, MORPHIEN, NOVOLOG (MILD SS), ZOFRAN PRN BOWEL MEDS DIET RX: NPO; JEVITY 1.5 AT 50 ML/HR W/250 ML WATER FLUSH EVERY 4 HOURS. TF PROVIDING 1800 KCALS, 77 GM PROTEIN, AND 912 ML FREE WATER + FLUSHES EST NUTR NEEDS: 3512-9715 KCALS (28-32 KCALS/KG) 87-108 GM PROTEIN (1.2-1.5 GM/KG) FLUID PER MD D-AT NUTRITION RISK W/INADEQUATE ORAL INTAKE R/T DIFF. SWALLOWING AEB FAILED MBS, RELIANCE ON ENTERAL FEEDINGS. I-RECOMMEND INCREASING TF TO 60 ML/HR TO MEET NUTR. NEEDS. THIS WILL PROVIDE 2160 KCALS, 92 GM PROTEIN, 1094 ML FREE WATER M/E-GOAL: TF TO MEET 100% OF PT'S NUTRIENT NEEDS. 1)F/U TF, WT, LABS, AND POC IN 3-5 DAYS 2)ASSIST NEEDED
--- NOTE | 2016-11-28 12:11 | NUR ---
Significant Event: A/O x3, 1-assist with walker and gaitbelt. HRs 70s, SBPs 130s. Tachypenic, O2 remains >90% on RA. Dobhoff feedings to L) nare running at 50ml/hr. Voids per urinal, no BM today. SL to L/ FA. Abraham drain DC today. Uses heart hugger well. Family updated and supportive at the bedside. Follow up:
--- NOTE | 2016-11-28 13:21 | NUR ---
D: I have reviewed and agree with charting completed by GRAY Whiting.
--- NOTE | 2016-11-28 14:46 | NUR ---
Significant Event: ALERT AND ORIENTED X3. VERY POLITE AND COOPERATIVE WITH CARES. FAMILY AT BEDSIDE VERY HELPFUL. ON ROOM AIR. TACHYPENIC AT TIMES. DOBHOFF TO LEFT NARE. JEVITY RUNNING AT 50ML/HR. FLUSH 250 ML WATER Q4 HRS. Q 6 HR ACCUCHECKS. SALINE LOCK TO LEFT ARM. LORTAB FOR PAIN. KINGS DRAIN DC'D TODAY. GAUZE AND TEGADERM TO DRAIN SITE. OTHER INCISIONS INCLUDING MIDLINE STERNAL INCISION AND POKE SITES TO CHEST OPEN TO AIR, HEALING WELL. HEART HUGGER IN PLACE, USES WELL. UP 1 ASSIST, WALKER, GAIT BELT. MEDS CRUSHED THROUGH DOBHOFF. ASSUMED CARE AT 1300. Follow up:
--- NOTE | 2016-11-29 03:22 | NUR ---
Significant Event: Patient is alert and oriented, VSS. Up one assist with GB/Walker. On sternal precautions wears a heart hugger at all times. Midsternal incisoin healing well opened to air. Has three stab sites to his upper abdomen 2 opened to air. The joseph drain in the middle was removed yesterday, covered with gauze and tegaderm now. Patient will be getting a portable chest x ray this AM. Patient also having trouble swollowing and has a dobhoff to his left nare. Jevity feedings at 50 ml/hr with 250 ml flushes q 4 hrs. Patient to have Accu checks q 6 hrs at 05,11,17,23 with q 6 hr residual checks to his Dobhoff. Meds through dobhoff. IV to left arm patent flushes well. Patient has extensive bruising to his lower extremities. Need to clarify if he is to wear the pneumatics. Is continent of B&B Follow up:
--- NOTE | 2016-11-29 14:56 | NUR ---
Significant Event: Alert and oriented x 3. Up with 1A walker and gait belt. Denies pain. Dobhoff feedings to L) nare running at 60mL/hr with 250 ML flushes q 4hr. Accuchecks q6hrs at 5.11.17.23. Residual checks done at same times as blood sugars. IV to left arm. Flushes well. Dressing to lower left side of abdomen where joseph drain was removed. C/D/I. Chest xray done this morning. Meds through dobhoff. Continent of bowel and bladder. Cooperative with cares. Follow up:
--- NOTE | 2016-11-30 03:40 | NUR ---
Significant Event: Patient is alert and oriented. VSS. Up one assist with GB/Walker. On sternal precautions wears a heart hugger at all times. Dobhoff to his left nare with Jevity at 60 mls/h 250 mls flushes q 4 hrs. Residual checks at 05,11,17,23. Accuchecks done at the same times. Last nights accu check was 130 no sliding scale insulin needed. No real c/o of pain but take Lortab at HS it helps him relax to sleep. Is continent of B&B. Saline lock to left FA. Follow up:
--- NOTE | 2016-11-30 14:31 | NUR ---
Significant Event: Alert and oriented x 3. Up with 1A walker and gait belt. Denies pain. Dobhoff to L) nare running at 60mL/hr with 250ml flushes q 4hr. Accuchecks and residual checks every 6hrs at 5.11.17.23. IV to L) forearm flushes well. Sternal precautions. Continent of Bowel and bladder. Cooperative with cares. Follow up:
--- NOTE | 2016-12-01 03:18 | NUR ---
Significant Event: Patient is alert and oriented, VSS. Up one assist with GB/Walker. Dobhoff to left nare patent. Jevity runs at 60 mls/h with 250 flushes. Residual checks still 05,11,17,23. Accu checks changed to BID at 07 and 19. We are to stop the tube feeding for 1 hr prior to giving the patient his synthroid and one hour after. Tubing was changed at 1700 lst evening. Sternal precautions with heart hugger at all times. Continent of bowel and bladder Follow up:
--- NOTE | 2016-12-01 08:30 | NUR ---
A-NUTRITION F/U CBW (STANDING SCALE): 71.0 KG; WT DOWN FROM LAST F/U ON 11/28 STANDING SCALE WT OF 72.1 KG. PT STARTED ON LASIX 11/28. LABS: PREALB 12.0 (NO CHANGE FROM 11/28) DIET RX: NPO. TF INCREASED TO 60 ML/HR JEVITY 1.5 ON 11/29 IN THE AFTERNOON, PER RECOMMENDATION. THIS IS PROVIDING 2160 KCALS, 72 GM PROTEIN, AND 1094 ML FREE WATER. PT ALSO RECEIVING 240 ML WATER FLUSHES Q4, PER MD. EST NUTR NEEDS: 3645-6620 KCALS AND 87-108 GM PROTEIN D-AT NUTRITION RISK W/INADEQUATE ORAL INTAKE R/T DIFF. SWALLOWING AEB RELIANCE ON ENTERAL FEEDINGS, MBS. I-CONTINUE W/CURRENT TF RX M/E-GOAL: TF TO MEET PT'S NUTRIENT NEEDS 1)F/U TF, WT, AND POC IN 3-5 DAYS 2)ASSIST NEEDED
--- NOTE | 2016-12-01 09:05 | NUR ---
D: Therapeutic Recreation Initial Assessment on the 12/01/16. I: Patient seen for 2 units at 905 to begin initial evaluation. Pt has dx of recent cabg. R: [place]: 2 Living with: Spouses name: Kaylee # of children: 3 (2 close by) Driving: yes, spouse does drive (car, pickup) Ambulating: I Equipment: N/A Hand Dominance: Right Custom Garment Designer strength: sternal precautions Eye sight: glasses Reading ability: no problem Hearing: no problem Speech: clear Cognition: alert Comprehension: good Following directions: yes Initiating: yes Eye contact: good Affect: bright COMMUNITY INVOLVEMENT: zoroastrian weekly, out to eat, visit children, grandchildren's event LEISURE INTERESTS: watch TV (sports), newspaper, work in shop, yard work, exercise Patient is referred by medical staff for treatment and evaluation in the following areas: Community Skills, Functional Leisure Skills, Participation, Leisure Education/Behaviors, Family Education Information obtained: Interview, Chart Review, Observation, other. BARRIERS TO LEISURE: Physical, Lifestyle (reports some problems now with depression) Patient determined to be: APPROPRIATE FOR THERAPEUTIC RECREATION ASSESSMENT. TREATMENT WILL INCLUDE: Community living skills training Functional leisure development Physical skills development Leisure education Family education Community resources/packet [employer] EQUIPMENT/INFORMATION: Parking Permit to assess need Community Resources Energy conservation in community setting Van/Service/Taxi Scrip Adapted Leisure Equipment Stress management/Relaxation techniques Functional car transfers Leisure Education Behaviors: Attitude, Awareness, Participation. Patient functional skills level and potential: Guarded, pt demonstrates low endurance with fair mobility and concerns for coping. Patient oriented ot TR services on Rehab unit. Pt/family provided input into goals setting and plan of care. Pt's goal is return home and be independent. P: Target date set with personal goals established. Will continue with POC focusing on pt/family training and education. For additional information please see Nursing Data Base, PT, OT, CM, ST, initial assessments to [facility] and Interdisciplinary Assessments.
--- NOTE | 2016-12-01 13:10 | NUR ---
Significant Event: PATIENT UP 1 ASSIST, WALKER, GAIT BELT. SOMETIMES HOLD ON TO TUBE FEEDING PUMP. ALERT AND ORIENTED X3. COOPERATIVE WITH CARES. JEVITY RUNNING AT 60ML/HR AND 250 ML FLUSH Q4 HRS WITH RESIDUAL CHECKS. MEDS CRUSHED THROUGH DOBHOFF IN LEFT NARE. DENIES PAIN. HEART HUGGER ON. DR. MUHAMMAD DISCUSSED POSSIBLY DOING A BARRIUM SWALLOW TEST TODAY BUT SPEECH VOICED CONCERNS THAT HE WASN'T READY YET. TOLERATING TUBE FEEDS WELL. VITALS STABLE ON ROOM AIR. CONTINENT OF BOWEL AND BLADDER. BM TODAY. HAZARDOUS MED PRECAUTIONS. IV TO LEFT FOREARM. TEGADERM AND GAUZE TO OLD DRAIN SITE AT BOTTOM OF STERNUM. OTHER INCISIONS APPROXIMATED AND OPEN TO AIR. PATIENT CALLS APPROPRIATELY AND TOLERATES THERAPY WELL. Follow up:
--- NOTE | 2016-12-01 20:35 | NUR ---
Removed tape from nose and reapplied a nasal strip tape for dobhoff feeding, wrapped dobhoff tubing using "margarette-cross" and wrapping tape on tubing. Tip of nose was at 56 cm andreina on tubing, after taping was completed the lower portion of the tape was at the 60 cm andreina.
--- NOTE | 2016-12-02 04:34 | NUR ---
Significant Event:Dobhoff infuses at 60 ml/hr with 250 ml water flushes q 4 hrs. Residual checks with water flushes, 0-1 ml residuals tonight. Saline lock to left forearm, no blood return but flushes easily. Accucheck 111 at 1900, no insulin coverage. Transfers with one assist/gait belt and uses either dobhoff pump pole or walker with ambulation. Found dobhoff tubing to be loose from tape on nares, unsure of the placement of tube. Called hospitalist and did cxr to verify placement--fdg on hold til it was verified that tube was in the proper area. Pt had soft weak cough, with occas production of clear thin phlegm during this time as well. No changes with lung sounds. Restarted dobhoff feeding and taped tubing to nares with andreina of 56 cm at tip of nose, but once tape is secured the 60 cm andreina is visible. Heart hugger on. Vertical sternum incision approx with scabs, has drsg to lower/left portion with gauze/biocclusive from a prior drain pulled on Thursday. Follow up: Accucheck 07, Fdgs continuous with water flushes/residual checks at 09,13,17. Head of bed up at 30 degrees with continuous feeding.
--- NOTE | 2016-12-02 14:54 | NUR ---
Significant Event: Alert and oriented x 3. Up with 1A walker and gait belt. Denies pain. Sternal precautions. Heart hugger on. Dobhoff to L) nare. Jevity running at 60ML/HR and 250 ML flush every 4 hours. Q4hr residual checks. Meds crushed through dobhoff. Continent of bowel and bladder. BM today. IV to left forearm. Occasional weak cough. Cooperative with cares. Follow up:
--- NOTE | 2016-12-03 03:31 | NUR ---
Significant Event:Patient is alert and oriented, VSS. Up one assist with GB/Walker. On sternal precautions wears a heart hugger at all times. Dobhoff to his left nare marked at 60 at the nare. Jevity running at 60 mls/h with 250 ml flush. Residual checks at 05,11,17,23. Accu checks BID at 07 and 1900. Last night he was 140. BM yesterday. We are to hold the tube feeding for 1 hr prior to his synthroid and 1 hr after. Continent of bowel and bladder. Saline lock to left FA. Follow up:
[2016-12-03 06:01] LABS: ANION GAP 8.1 (10.0-19.0); BLOOD UREA NITROGEN 26 mg/dL (6-24); CALCIUM 7.8 mg/dL (8.5-10.5); CHLORIDE 104 mMol/L (96-110); CO2 30 mMol/L (22-32); ESTIMATED GFR (MDRD EQUATION) > 60; POTASSIUM 4.1 mMol/L (3.7-5.1); SODIUM 138 mMol/L (135-145)
--- NOTE | 2016-12-03 11:52 | NUR ---
D: TR progress note for 12/03/16. I: Pt seen for 2 units at 1102 in group session for education on safety when around pets/animals, group participation, and leisure education and coping strategies. R: Pt seen for functional skills building working on relaxation techniques, stress/pain management, and continued education on coping skills using animals for Animal Assisted Therapy. Pt completed functional communication skills independently which included personal introduction self and shared with group about family pet. Education done on safety with ambulation/mobility in homes when around animals, safety with possibility of poor skin integrity and utilizing pets to assist with coping and stress/pain management when opportunity available. P: Will continue to see to address goals and plan of care.
--- NOTE | 2016-12-03 16:08 | NUR ---
Significant Event:PATIENT ALERT AND ORIENTED THIS SHIFT. VSS. TRANSFERS WITH 1 ASSIST, GAIT BELT AND EITHER WALKER OR HE HOLDS ON TO THE PUMP POLE. ACCU CHECK AT 07 WAS 126. FAMILY AT BEDSIDE MUCH OF THE DAY. HAS DENIED PAIN. SALINE LOCK IN LEFT FOREARM INTACT. TUBE FEEDING RUNNING AT 60ML/HR. WILL ORDER NEW PUMP THIS ONE IS NOT SEEMING TO RUN CORRECTLY ALL THE TIME. USES HEART HUGGER WITHOUT DIFFICULTY. HAS A COUGH AT TIMES. NO OTHER COMPLAINTS. Follow up:
--- NOTE | 2016-12-04 02:50 | NUR ---
Significant Event: Patient is alert and oriented, VSS. Up one assist handheld. Accu checdks BID at 0700 and 1900, Last night was 136. Saline lock to patient left FA flushes well no blood return. Dobhoff to his left nare, andreina at 60 to the nare. Jevity infuses at 60 mls/h with 250 mls flushes q 4 hrs. We are to stop tube feeding 1 hr before and 1 hr after his Synthroid. Residual checks 05,11,17,23. No residual when checked. Sternal precautions, wears a heart hugger at all times. Denies pain most of the time but takes Lortab at bedtime for comfort. Follow up: Can we remove the dressing from the joseph drain site?
--- NOTE | 2016-12-04 12:21 | NUR ---
D: TR progress note for 12/04/16. I: Pt seen for 2 units at [facility] for community integration skills building, functional transfers, safety awareness and endurance building. R: Pt seen for functional skills building working on mobility, safety, transfers and community skills in anticipation for discharge back into community. Pt taken around [facility] indoors and outdoors to simulate community environment. Pt transferred sit > stand from WC SBA, ambulated SBA > CGA to descend 30 feet ramp with cues for safety and transferred on/off low park bench SBA with recall for sternal precautions with seat surface adapted using cushion to ease task. Pt completed community transfer on/off low community style waiting room chair again SBA with use of cushion and heart hugger. Education done on safety when traveling long distances, inclement weather (heat) and energy conservation tips. P: Will continue to see to address goals and plan of care.
--- NOTE | 2016-12-04 16:43 | NUR ---
A - NUTRITION FOLLOW-UP PER SHIFT REPORT ON 12/01, PT IS NOT READY FOR MBS YET. PER RECORD, WT ON 11/27 158# VS 12/02 156#, STARTED ON LASIX ON 11/28 LABS: GLU 113, BUN 26, PRE-ALB 12 (12/01) NO NEW MEDS. DIET: TF VIA DOBHOFF W/ JEVITY 1.5 AT 60ML/HR WITH 250ML WATER FLUSHES EVERY 4 HR, PROVIDING 2160 KCAL, 92 GRAMS PROTEIN, 1094ML FREE WATER. TOLERATING TF. EST NEEDS: 0735-1102 KCAL, 87-108 GRAMS PROTEIN, FLUID NEEDS: 1ML/KCAL D - INADEQUTE ORAL INTAKE RELATED TO DIFFICULTY SWALLOWING EVIDENCED BY MBS RESULT AND NEED FOR ENTERAL NUTRITION. I - CONTINUE TF W/ JEVITY 1.5 AT 60ML/HR WITH 250ML WATER FLUSHES Q4HR M/E - GOAL: PT WILL CONTINUE TO TOLERATE ENTERAL NUTRITION AND MEET >75% OF NEEDS IN 4-6 DAYS.
--- NOTE | 2016-12-04 19:20 | NUR ---
Significant Event:PATIENT ALERT AND ORIENTED THIS SHIFT. VSS. TRANSFERS WITH 1 ASSIST, GAIT BELT AND USES TUBE FEEDING POLE FOR SUPPORT. IS STEADY ON HIS FEET. HAS DENIED PAIN. INCISIONS HEALING WELL. TUBE FEEDING INFUSES AT 60ML/HR. HAS TOLERATED THERAPIES WELL. NO OTHER COMPLAINTS. Follow up:
--- NOTE | 2016-12-05 04:28 | NUR ---
Significant Event:Transfers with one assist/gaitbelt and use of feeding pump pole. Heart hugger on. Accucheck at 1900 was 127, no coverage. Jevity at 60 ml/hr, new bag/tubing added at 2100 and did switch out the kangaroo pump as prior one had a blackened screen when trying to prime new tubing. Sternal vertical incision dry/scabbed with stab puncture wounds to upper abd, has surgical wounds/sutures to lower legs with bruising. Lortab at hs around 2029, effective for preventing pain and promoting sleep. Dobhoff in left nare at 60 cm andreina, 0-1 ml residual checks q 4 hrs with 250 ml flush. Follow up:Flushes at 09, 13, and 17. Need to flush and leave pump fdg off 1 hr before and 1 hr after synthroid. Possibly try mod barium swallow on mon or tu.
--- NOTE | 2016-12-05 11:43 | NUR ---
Significant Event:a/o x 3, pleasant and cooperative with cares. Ambulates with SBA. UP in the chair between therapies. No c/o pain. Incision to sternum and upper abdomen are approximated and healed, open to air. Sutures intact to layla lower extremities. Heart hugger in use. 250 ml water flush last at 0900, next at 1300. Dobhoff in L) nare at 60 cm, no residuals. Follow up:Continue with therapies.
--- NOTE | 2016-12-05 14:46 | NUR ---
[facility] Case Management Prefunctioning and Psycho-Social Initial Assessment for 11/27/16 and Case Conference Note for 12/03/16 D: Initial Supervisor Contact [employer] Press Operator and Case Conference Note. I: Input from: patient, family, Dr. Buenrostro, Samantha ESCUDEROW R: Reason for admission: CABG. Admission Date to [facility]: 11/27/16 Admission Date to Hospital: 11/18/16 Prior level of functioning: patient was independent with adl's and active prior to CABG. Prior living situation: house with 2 steps Financial resources/expectations: patient has Medicare and BC/BS. Resources used: none. Resources available: HHC, outpatient therapy, SNF, [facility], [facility], DME. Family support available: family Understands nature of health condition: yes Recognizes impact of health condition on lifestyle: yes Vocational/Educational: retired Behavior/Emotional needs: cues for safety. Monitor for signs and symptoms of depression and anxiety. Legal concerns: none. Discharge goal: home with . Assessment: Slava is an 86 year old man from [place], [place] admitted after a CABG. He is having difficulty with swallowing as well. He has good family support. Plan is for patient to remain on GIRP for approx. 7-10 days. Will follow and assist as needed. Orientation to the program and CM services completed with Slava. Initial plan of care and estimated length of stay discussed, disclosure statement reviewed including patient assessment rights. P: Target date and individual goals established. Please see POC for details. For additional information please see Nursing Data Base, PT, OT, TR, ST, Initial assessments to [facility].
--- NOTE | 2016-12-05 14:49 | NUR ---
D: I have reviewed and agree with charting completed by GRAY Whiting.
--- NOTE | 2016-12-06 04:45 | NUR ---
Significant Event: denies pain. A/O x3. has continuous tube feeding running at 60 ml/hr and 250 flushes of water q4h. uses heart hugger appropriately. up to bathroom with 1 assist, can be independent in room, but needs help with pole.incisions to chest abdomen scabbed and healing. graft sites to legs with sutures. edema to lower extremities. SL to LFA. accucheck at hs 130, no Novolog insulin needed. Follow up:
--- NOTE | 2016-12-06 12:25 | NUR ---
Significant Event: PATIENT UP 1 ASSIST, STANDBY. TOLERATES ACTIVITY WELL. HEART HUGGER IN PLACE, PATIENT USES WELL. BID ACCUCHECK, 0700 WAS 156, NO SSLIDING SCALE NEEDED. GRAFT SITES TO LEGS INTACT WITH SUTURES. INCISIONS TO CHEST APPROXIMATED, SCABBED. ALERT AND ORIENTED X3. COOPERATIVE WITH CARES. CONTINENT OF BOWEL AND BLADDER. DENIES PAIN. TUBE FEEDING TO LEFT NARE DOBHOFF. CONTINUOUS FEEDING 60ML/HR WITH 250ML Q4 HR WATER FLUSH, Q4 HR RESIDUAL CHECKS, NO COMPLICATIONS. MEDS CRUSHED THROUGH DOBHOFF. HAZARDOUS MED PRECAUTION. PATIENT DID NOT HAVE THERAPY TODAY SO HE PRACTICED SPEECH EXERCISES AND WALKED TODAY. Follow up:
--- NOTE | 2016-12-07 03:14 | NUR ---
Significant Event: LORTAB ELIXIR 7.5 ML GIVEN AT 2155 FOR PAIN TO RIBS AND ABDOMEN. HAS SLEPT WELL. TUBE FEEDING OF JEVITY CONINUES AT 60 ML PER HOUR WITH 250 ML WATER FLUSHES EVERY 4 HRS. ACCUCHECK AT 1900 WAS 159, NO NOVOLOG NEEDED. HAS NONPRODUCTIVE COUGH. INCISONS TO CHEST/ABDOMEN APPROXIMATED, SCABBED. SUTURES TO BILATERAL LEGS, GRAFT SITES. STEADY GAIT WHEN UP, NEEDS ASSIST TO UNPLUG PUMP. Follow up:
--- NOTE | 2016-12-08 04:15 | NUR ---
Significant Event: lortab elixir 7.5 ml givne at 1953 for c/o pain to ribs, abd. accucheck at 1900 140, no insulin required. has dry cough with occasional scant amount clear phlegm. tolerating feeding without c/o. is to have swallow study today. patient anxious to get home. up with standby assist. steady gait. uses heart hugger correctly. Follow up:
[2016-12-08 05:10] LABS: BASOPHIL # 0.1 K/uL (0.0-0.2); BASOPHIL % 0.8 %; EOSINOPHIL # 0.8 K/uL (0.0-0.5); EOSINOPHIL % 9.9 %; HEMATOCRIT 29.6 % (33.0-50.0); HEMOGLOBIN 9.8 g/dL (11.0-16.0); IMMATURE GRANULOCYTE % 0.3 %; LYMPHOCYTE # 1.3 K/uL (0.8-4.0); LYMPHOCYTE % 16.1 %; MCH 31.2 pg (27.0-34.0); MCHC 33.1 gm/dL (32.0-36.5); MCV 94.3 fl (83.0-98.0); MONOCYTE # 0.7 K/uL (0.0-1.0); MONOCYTE % 8.3 %; MPV 10.9 fl (9.4-12.4); NEUTROPHIL # (ANC) 5.1 K/uL (1.4-9.0); NEUTROPHIL % 64.6 %; NRBC % 0 /100WBC (0-0.00); RBC 3.14 M/uL (3.50-5.50); RDW-CV 17.2 % (11.9-14.6); WBC 7.8 K/uL (4.0-11.0)
[2016-12-08 05:14] LABS: PLATELET COUNT 312 K/uL (150-450)
[2016-12-08 05:30] LABS: ALBUMIN 2.5 gm/dL (3.5-5.0); ALK PHOS 90 IU/L (33-138); ALT 19 IU/L (12-78); BLOOD UREA NITROGEN 22 mg/dL (6-24); CALCIUM 8.1 mg/dL (8.5-10.5); CHLORIDE 104 mMol/L (96-110); CO2 27 mMol/L (22-32); ESTIMATED GFR (MDRD EQUATION) > 60; SODIUM 138 mMol/L (135-145); TOTAL PROTEIN 6.5 g/dL (6.0-8.4)
[2016-12-08 05:31] LABS: AST 20 IU/L (10-40); TOTAL BILIRUBIN 0.7 mg/dL (0.0-1.5)
--- NOTE | 2016-12-08 12:02 | NUR ---
D: TR progress note for 12/08/16. I: Pt seen for 2 units for 930 leisure education, cognitive thinking task, and coping strategies. R: Pt seen for functional skills building working on cognitive thinking skills, recall, BUE coordination and fine motor skills using new card game "golf" to increase independence in all task. Pt able to complete game SBA > occasional using visual cues aide to assist with identification of point system. Pt utilized BUE to manage and maneuver cards independently with fair > good coordination and could complete simple math task in head without difficulty but did demonstrate problems with recall on placement of cards. Education continued on utilization of leisure to promote recovery. P: Will continue to see to address goals and plan of care.
--- NOTE | 2016-12-08 17:19 | NUR ---
Significant Event:PATIENT ALERT AND ORIENTED THIS SHIFT. VSS. TRANSFERS WITH SBA OR INDEPENDANTLY IN ROOM. ENCOURAGED TO CALL FOR HELP IF NEEDED. DOBHOFF REMOVED TODAY. WENT TO XRAY FOR MBS AND IS ON MECHANICAL SOFT DIET NOW WITH THIN LIQUIDS. TAKES MEDS WHOLE WITH APPLESAUCE. WILL NEED TO MONITOR SIZE OF MEDS AND MAY NEED TO CRUSH SOME OR BREAK IN HALF. ACCU CHECKS DC'D TODAY NO LONGER ON THE TUBE FEEDING. RESTED IN RECLINER ALL SHIFT. USES HEART HUGGER APPROPRIATELY. NO OTHER COMPLAINTS. Follow up:
--- NOTE | 2016-12-09 05:32 | NUR ---
Significant Event: Patient is alert and oriented, VSS. UP mod I in room. Dobhoff has been removed and patient is now on Cardiac mechanical soft diet thin liquids. Takes meds whole or crushed in applesauce. Denies pain but takes a Lortab at HS for sleep. Continues on sternal precautions with heart hugger on at all times. Saline lock to L FA has been removed. Accu checks have been Dc'd. Follow up:
--- NOTE | 2016-12-09 11:20 | NUR ---
A-NUTRITION F/U MBS YESTERDAY; DOBHOFF PULLED AND ORAL DIET STARTED CBW: 71.0 KG; STABLE LABS REVIEWED: GLU 128, ALB 2.5, PREALB 14.0. PREALB UP FROM 12.0 MEDS CHANGED TO ORAL DIET RX: CARDIAC/MECHANICAL SOFT DEIT; PO INTAKE 25% D-AT NUTRITION RISK W/INADEQUATE ORAL INTAKE W/DIFF. SWALLOWING AEB RECENT DOBHOFF AND ENTERAL FEEDINGS, NEED FOR ALTERED CONSISTENCY. I-1)WILL START ENSURE ENLIVE TID TO PROVIDE ADDITIONAL NUTRIENTS 2)RECOMMEND CHANGING DIET TO REGULAR/MECHANICAL SOFT M/E-GOAL: PO INTAKE >/=50% BY DISCHARGE 1)F/U DIET RX, PO INTAKE, SUPPLEMENT, WT AND POC IN 3-5 DAYS 2)ASSIST NEEDED
--- NOTE | 2016-12-09 17:01 | NUR ---
Significant Event: Pt up in room Mod I, at times SBA, aaron. well. Heart hugger on, does well with sternal precautions, at times minimal cueing. Minimal meal intake, but is increasing. Most of meds were crushed in applesauce, can do small ones whole. Denied pain t/o day. Pt pleasant and cooperative with cares. Follow up: activity, safety, heart hugger. increase oral intake/appetite
--- NOTE | 2016-12-10 04:45 | NUR ---
Patient alert and oriented. Mod I in room. Sternal precautions, wears heart hugger. Takes pills crushed in applesauce. Mechanical soft diet with thin liquids. Denies pain. VSS. Cooperative with cares. Is hard of hearing. Incisions all open to air.
--- NOTE | 2016-12-10 11:42 | NUR ---
D: TR progress note for 12/10/16. I: Pt seen for 2 units at 1100 in group session for education on relaxation techniques, stress/pain management, coping strategies, group participation and leisure education. R: Pt seen for functional skills building working on relaxation techniques, stress/pain management, and continued education on coping strategies in anticipation for discharge back into community. Pt actively participated in session, completed functional social communication skills independently which involved personal introduction of self and identification of ways pt dealt with pain/stress prior to hospitalization. Education completed by verbal discussion on the signs and symptoms the physical stress/pain can cause on the body and it's affects along with identification of coping strategies and relaxation techniques. P: Will continue to see to address goals and plan of care.
--- NOTE | 2016-12-10 17:14 | NUR ---
Significant Event: Patient is alert and oriented x3. Follows commands. Denies N/T. PERRLA. Dillifulty swallowing- takes pills crushed in medications. Regular mechanical soft diet. Lungs are diminished in the bases. Sternal incision, upper abd incision, bilateral legs. Bowel sounds aer active. Ambulates with SBA. Pleasant and cooperative with cares. Follow up:
--- NOTE | 2016-12-11 04:56 | NUR ---
Significant Event: denies pain. up with SBA during night. steady gait. has difficuly swallowng pills. pills in applesauce, crushed or whole. to go home today, ride will be here after noon. suture to groin needs to be removed. incisions to chest abdomen healing well. Follow up:
[2016-12-11] MEDS ORDERED: K-TAB 10MEQ10 MEQ PO ×2 (12:57→12:58)
[2016-12-11] MEDS ORDERED: PROVENTIL OR V6.7 GM INH (12:58)
[2016-12-11] MEDS ORDERED: PEPCID20 MG PO (13:00)
[2016-12-11] MEDS ORDERED: LASIX20 MG PO (13:01)
[2016-12-11] MEDS ORDERED: LEVOTHROID (SY50 MCG PO (13:02)
[2016-12-11] MEDS ORDERED: CORDARONE,PACE200 MG PO (13:03)
[2016-12-11] MEDS ORDERED: COLACE100 MG PO (13:05)
[2016-12-11] MEDS ORDERED: NORCO 10-325 T1 EACH PO (13:06)
[2016-12-11] MEDS ORDERED: FEOSOL325 MG PO (13:07)
[2016-12-11] MEDS ORDERED: LASIX40 MG PO (13:10)
--- NOTE | 2016-12-11 16:56 | NUR ---
Significant Event:PATIENT ALERT AND ORIENTED THIS SHIFT. VSS. TRANSFERS INDEPENDANTLY. WEARS AND USES HEART HUGGER AT ALL TIMES WHEN UP AND ABOUT. INCISIONS HEALING WELL. SUTURES REMOVED FROM RENITA LEGS AND UPPER THIGH AREAS. HAS DENIED PAIN ALL SHIFT. READY TO GO HOME. FAMILY HERE AFTER LUNCH. DISCHARGE INSTRUCTIONS REVIEWED WITH PATIENT AND FAMILY AND COPY GIVEN TO PATIENT. DC HOME VIA PRIVATE VEHICLE WITH ALL BELONGINGS AND INSTRUCTIONS. DC TO FRONT ENTRANCE VIA WHEELCHAIR WITH TRANSPORT STAFF. NO OTHER COMPLAINTS. Follow up:
--- NOTE | 2016-12-12 14:31 | NUR ---
D: Shield Operator Team Conference Follow up for 12/10/16 and Discharge Note for 12/11/16 I: Input from patient/family R: Met with: patient, family, Samantha Moeller CLEANING ATTENDANT Discussed rehab plan, patient progress, discharge plan and estimated length of stay of d/c planned on 12/11/16 Patient/Family Preference: patient and family are in agreement. Anticipated discharge disposition: home with outpatient therapy set up through [facility] for cardiac rehab and speech therapy. Education completed: Education was completed with patient and family regarding length of stay, progress in therapy and d/c plan. Assessment/Recommendation: Team recommends d/c on 12/11/16. P: Case Coordination: Slava is an 86 year old man from [place], [place] admitted after a CABG. Going home with cardiac rehab and speech therapy set up through [facility] in [place], [place]. Orders faxed. No other needs identified. Will call patient next week to see how he is doing post discharge.
== END 2016-12-11 14:25 | disposition disaster alternative care site (69) | DRG 949 ==
LOC: GIRP 10:01
PROVIDERS: Internal Medicine; ADMIT Physical Medicine & Rehabilitation
PROC: F07M6ZZ Therapeutic Exercise Treatment of Musculoskeletal System - Whole Body (ICD-10-PCS; principal; 2016-11-27)
PROC: F06Z6ZZ Communicative/Cognitive Integration Skills Treatment (ICD-10-PCS; principal; 2016-11-27)
PROC: F08Z4ZZ Home Management Treatment (ICD-10-PCS; principal; 2016-11-27)
PROC: F07Z9ZZ Gait Training/Functional Ambulation Treatment (ICD-10-PCS; principal; 2016-11-27)
DX: Z48.812 Encounter for surgical aftercare following surgery on the circulatory system (principal); E44.0 Moderate protein-calorie malnutrition; D50.0 Iron deficiency anemia secondary to blood loss (chronic); R13.10 Dysphagia, unspecified; Z95.1 Presence of aortocoronary bypass graft; I25.10 Atherosclerotic heart disease of native coronary artery without angina pectoris; I10 Essential (primary) hypertension; E78.5 Hyperlipidemia, unspecified; E03.9 Hypothyroidism, unspecified; R26.9 Unspecified abnormalities of gait and mobility; R73.9 Hyperglycemia, unspecified; Z68.20 Body mass index [BMI] 20.0-20.9, adult; Z79.82 Long term (current) use of aspirin
CPT/HCPCS: J1650

== ENCOUNTER → 2016-12-24 | Outpatient (CLI) | payer MEDICARE, BC ==
[~2016-12-24] MED LIST changes: +COLACE100 MG PO; +CORDARONE,PACE200 MG PO; +FEOSOL325 MG PO; +K-TAB 10MEQ10 MEQ PO; +LASIX20 MG PO; +LASIX40 MG PO; +LEVOTHROID (SY50 MCG PO; +NORCO 10-325 T1 EACH PO; +PEPCID20 MG PO; +PROVENTIL OR V6.7 GM INH
[2016-12-24 14:12] LABS: BASOPHIL # 0.1 K/uL (0.0-0.2); BASOPHIL % 0.9 %; EOSINOPHIL # 0.3 K/uL (0.0-0.5); EOSINOPHIL % 4.4 %; HEMATOCRIT 36.1 % (33.0-50.0); HEMOGLOBIN 12.2 g/dL (11.0-16.0); IMMATURE GRANULOCYTE % 0.1 %; LYMPHOCYTE # 1.3 K/uL (0.8-4.0); LYMPHOCYTE % 16.5 %; MCH 33.2 pg (27.0-34.0); MCHC 33.8 gm/dL (32.0-36.5); MCV 98.4 fl (83.0-98.0); MONOCYTE # 0.8 K/uL (0.0-1.0); MPV 10.1 fl (9.4-12.4); NEUTROPHIL # (ANC) 5.3 K/uL (1.4-9.0); NEUTROPHIL % 68.1 %; NRBC % 0 /100WBC (0-0.00); PLATELET COUNT 235 K/uL (150-450); RBC 3.67 M/uL (3.50-5.50); WBC 7.7 K/uL (4.0-11.0)
[2016-12-24 14:30] LABS: ALBUMIN 3.2 gm/dL (3.5-5.0); ANION GAP 10.4 (10.0-19.0); CALCIUM 8.5 mg/dL (8.5-10.5); CREATININE 1.2 mg/dL (0.6-1.3); POTASSIUM 4.4 mMol/L (3.7-5.1); TOTAL BILIRUBIN 0.6 mg/dL (0.0-1.5); TOTAL PROTEIN 7.6 g/dL (6.0-8.4)
== END | disposition disaster alternative care site (69) ==
LOC: LNHI 14:06
PROVIDERS: Thoracic Surgery (Cardiothoracic Vascular Surgery)
DX: I25.10 Atherosclerotic heart disease of native coronary artery without angina pectoris (principal); I10 Essential (primary) hypertension; R53.83 Other fatigue